=== PATIENT | female | born 1940 | race Caucasian/White ===

== ENCOUNTER 2021-07-15 23:55 | Inpatient (IN) | payer MEDICARE ==
[~2021-07-15] VITALS: Ht 162.6 cm; Wt 45.3 kg
[2021-07-15 23:35] VITALS: BP 173/74
[2021-07-16] MEDS ORDERED: ONDANSETRON PF 4 MG/2 ML VIAL. IVP PRN (01:15)
[2021-07-16] MEDS: IV NORMAL SALINE 1000ML BAG 1,000 ML IV SCH ×3 (01:36→23:50)
[2021-07-16] MEDS: hydrALAZINE 20 MG/ML VIAL. IVP PRN (01:36)
[2021-07-16] MEDS ORDERED: LISI10TA16 PO (02:40)
[2021-07-16] MEDS ORDERED: MULT-735 PO (02:40)
[2021-07-16] MEDS ORDERED: LORA-434 PO (02:40)
[2021-07-16] MEDS ORDERED: SIMV40TA18 PO (02:40)
[2021-07-16] MEDS ORDERED: ASPI-630 PO (02:40)
[2021-07-16] MEDS ORDERED: CALC500T54 PO (02:40)
[2021-07-16] MEDS ORDERED: METO-239 PO (02:40)
[2021-07-16] MEDS ORDERED: METH4TAB7 PO (03:13)
[2021-07-16 03:47] VITALS: BP 151/55
[2021-07-16] MEDS: PIPERACILLIN/TAZOBACTAM 3.375 GM in IV NORMAL SALINE 50ML 50 ML IV SCH ×4 (05:39→23:50)
[2021-07-16 06:53] LABS: PROTHROMBIN TIME PATIENT 12.8 SEC (11.7-14.0)
[2021-07-16 07:00] VITALS: BP 168/60
--- NOTE | 2021-07-16 09:14 | PN ---
DATE: 07/16/2021 SUBJECTIVE: The patient is resting, slightly propped up in bed, in no apparent distress. She is awake, alert. On questioning her, she continued to complain of pain mostly in the left lower quadrant. Denied any chills, rigors or fever. Denied any nausea, vomiting. She does pass some gas. Her last bowel movement was more than 24 hours ago. PHYSICAL EXAMINATION: GENERAL: When I examined her, she looked well and was clearly in no apparent respiratory distress. She was cachectic, but there was no pallor, jaundice, cyanosis or thyromegaly. No jugular venous distention. No limb edema. VITAL SIGNS: Her heart rate was 92, blood pressure is 168/60, temperature was 98, respiratory rate was 16 and oxygen saturation was 96% on 2 liters of oxygen. HEAD, EYES, EARS, NOSE, AND THROAT: Normocephalic, atraumatic. NECK: Supple. HEART: Normal first and second heart sounds, no gallop or murmur. CHEST: Clear to auscultation, no crepitation or rhonchi. ABDOMEN: Slightly distended with tenderness mostly in the left lower quadrant and suprapubic area. No guarding or rigidity. No organomegaly. All hernial orifice intact. Bowel sounds normal. NEUROLOGIC: She was grossly intact. Her intake and output are incompletely recorded. LABORATORY DATA: As of this morning showed that her prothrombin time was 12.8, INR of 1, APTT was 25. Her lactic acid was 2.4. Her CBC and CMP are still pending at the time of this dictation. ASSESSMENT: 1. Acute diverticulitis with perforation. 2. Hypertension. 3. Hyperlipidemia. 4. Chronic obstructive pulmonary disease. 5. 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 PLAN: My plan is to obviously continue n.p.o. status. Continue with IV fluid. We will continue to monitor blood sugar and if it is persistently high, we might have to start her on low dose sliding scale. ALLAN DR: Zach TID: [id number]
[2021-07-16 09:24] LABS: HEMATOCRIT 38.1 % (36.0-47.0); RED BLOOD COUNT 3.86 x10^6/uL (3.50-5.40); WHITE BLOOD COUNT 11.8 x10^3/uL (4.0-11.0)
[2021-07-16 09:37] LABS: ALBUMIN 3.1 g/dL (3.4-5.0); ALBUMIN/GLOBULIN RATIO 0.9 (1.0-1.7); CALCIUM 8.4 mg/dL (8.5-10.1); CREATININE 0.9 mg/dL (0.6-1.0); GFR 60.4; POTASSIUM 4.4 mmol/L (3.5-5.1); TOTAL BILIRUBIN 0.2 mg/dL (0.2-1.0); TOTAL PROTEIN 6.4 g/dL (6.4-8.2)
--- NOTE | 2021-07-16 09:52 | NUR ---
SW following. Discussed with RN, pt from home with family, 2L (uses oxygen at home), NPO. Pt is a new admit, awaiting plan of care. RN advised no SW needs at this time. SW will continue to follow.
[2021-07-16 11:00] VITALS: BP 162/56
--- NOTE | 2021-07-16 12:19 | HP ---
DATE OF SERVICE: 07/16/2021 ADMIT DATE: 07/15/2021 HISTORY OF PRESENT ILLNESS: The patient is a 81-year-old female patient who presented to the Emergency Room of [facility] with a complaint of abdominal pain since she woke up the day of admission and she reported intermittent pain to different parts of her abdomen that comes and goes. She reports almost no pain when lying flat; however, notes increased pain when she sits up or when she is up walking. She reported that she does take MiraLax and she has diarrhea all the time. She stated that she is concerned that she might have another small-bowel obstruction. She had similar symptoms on her small-bowel obstruction earlier for which she was seen at [facility] and apparently resolved conservatively. The patient currently reports 0/10 pain at this time. The time she arrived, she reports that she had some twinges of pain while in the waiting room. She states that last week, she was seen for a COPD exacerbation and she quit smoking about 14 years ago. She does complain of shortness of breath that is no more short than her usual. Denied any chest pain, cough, phlegm, nausea or constipation. Her last bowel movement was about 24 hours ago. She was extensively investigated in the Emergency Room of [facility] and has had lab work and imaging studies. Her CBC showed that she has leukocytosis with a white cell count 14,400 and manual differential showed 87% polymorphs. Her D-dimer was high at 4.84 and her chemistry showed that she is somewhat dehydrated and has also hyperglycemia, although this is obviously not fasting glucose. Urinalysis essentially unremarkable. Her coronavirus by PCR was negative and her imaging studies included chest x-ray, which showed no acute radiographic abnormality of the chest. She has constellation of findings, typically seen in emphysema. She did have a CT scan of the chest, abdomen and pelvis with contrast and it does show that the patient has no pulmonary embolism or aortic dissection. She has extremely severe calcified and noncalcified atheromatous plaque burden throughout the aorta, aortic branch vessels and coronary arteries. Luminal narrowing of the abdominal aorta up to approximately 50%, severe stenosis of the celiac, right renal artery and inferior mesenteric artery. She also has long segment severe stenosis of both common iliac arteries, and multifocal less pronounced stenosis at additional location as described in the body of the report. She has scattered free gas throughout the abdomen and pelvis, this appears to be originating from the sigmoid colonic perforation, which may be secondary to perforated diverticulitis, but an ischemic etiology not able to be excluded. She has no portal or gastroepiploic venous gas to help confirm. The later portions of the sigmoid colon wall are difficult to delineate and there may be a poorly marginated gas fluid collection at the left hemipelvis such as in the region of image 94, series 8, no finding to indicate that the perforation arising from the stomach or small bowel. She has scattered degenerative changes, unchanged sclerosis of the sacroiliac joint and therefore, the patient was transferred to [facility], was kept n.p.o., started on IV fluid, IV antibiotic as well as pain medication, antiemetic. Continue with her oxygen. Consulted the surgical team. PAST MEDICAL HISTORY: Significant for hypertension, hyperlipidemia, chronic obstructive pulmonary disease that is oxygen dependent. She is a vasculopath and she has bilateral carotid artery stenosis and apparently finding consistent with inferior mesenteric artery stenosis, right renal artery stenosis and celiac artery stenosis and bilateral common iliac artery stenosis. PAST SURGICAL HISTORY: Significant for bilateral cataract extraction, what seemed to be a retinal detachment. Has no other surgical procedures. ALLERGIES: She has no known drug allergies. MEDICATIONS: She is currently on simvastatin 40 mg at bedtime, metoprolol succinate 50 mg once a day, lisinopril 10 mg once a day, aspirin 81 mg once a day, lorazepam 1 mg at bedtime, calcium carbonate 600 mg daily, methylprednisolone 4 mg daily. She is on multivitamin 1 tablet once a day. FAMILY HISTORY: Noncontributory. SOCIAL HISTORY: She is , lives with her daughter. She quit smoking about 14 years ago. She does not drink alcohol or use recreational drugs. She worked for [employer] in [employer] for 10 years and worked as a rn field case manager for 10 years. She is currently retired. REVIEW OF SYSTEMS: The patient denied any blurring of vision, cataracts, glaucoma or macular degeneration. Denied any earache, tinnitus or sensorineural deafness. Denied any nosebleed, stuffy nose or postnasal drip. Denied any sore throat, sore tongue, toothache, hoarseness of voice or difficulty swallowing. Denied any nausea, vomiting, diarrhea or constipation. Denied any hematemesis, melena or hematochezia. Denied any dysuria, frequency or hematuria. Denied any chest pain or shortness of breath more than usual. She denied any cough, phlegm or hemoptysis. PHYSICAL EXAMINATION: GENERAL: On arrival to the Emergency Room, she looked well and was clearly in no apparent respiratory distress. There was no pallor, jaundice, cyanosis or thyromegaly. No jugular venous distention. No lower limb edema, although, she is extremely cachectic with a body mass index of only 17 kilograms/square meter. VITAL SIGNS: Her heart rate on arrival to the Emergency Room was 81, blood pressure was 154/58, her temperature was 98, respiratory rate 20, and oxygen saturation was 92% on room air. HEAD, EYES, EARS, NOSE, AND THROAT: Normocephalic, atraumatic. NECK: Supple. HEART: Normal first and second heart sounds, no gallop or murmur. CHEST: Shows central trachea, equally reduced expansion, reduced air entry, vesicular breath sounds. I could not really appreciate any crepitation or rhonchi. ABDOMEN: Slightly distended with tenderness mostly in the left lower quadrant and suprapubic area and there is no guarding or rigidity. No organomegaly. All hernial orifice intact. Bowel sounds normal. NEUROLOGIC: She is awake, alert, responding appropriately. All cranial nerves intact. She moves extremities without difficulty. She normally ambulates without assistance or assistive devices. LABORATORY DATA: Showed a white cell count of 14,400, hemoglobin 13, hematocrit 39, MCV 98 and platelet count 283,000. Her chemistry showed a serum sodium 135, potassium 4.7, chloride 99, bicarbonate 27, anion gap of 9, BUN 32, creatinine 1, estimated GFR was 53 mL per minute. Her glucose 169, calcium was 8.6. Total bilirubin, AST, ALT, alkaline phosphatase were normal. Total protein was 6.6, albumin 3.3 and serum lipase was only 42. Her D-dimer was high at 4.84. Urinalysis essentially unremarkable and her coronavirus by PCR was negative. ASSESSMENT AND PLAN: Given the finding CT scan of the chest, abdomen and pelvis, the patient was transferred to [facility] with a diagnosis of bowel perforation, questionable acute diverticulitis with perforation. Blood sugar was elevated; however, this is not a fasting profile. She had hypertension, elevated D-dimer with negative CT angio for pulmonary emboli. She is severe vasculopath with multiple arterial stenosis including celiac, right renal artery, inferior mesenteric artery, and bilateral carotid artery stenosis. She was admitted to [facility], kept n.p.o., started on IV fluid, IV antibiotic in the form of Zosyn 3.375 grams IV every 6 hours, pain medication, antiemetic and kept her n.p.o., consulted the surgical team for definitive surgical treatment. KATELYN/LEANA/MICHAEL DR: Zach TID: [id number]
--- NOTE | 2021-07-16 14:57 | PDOC2 ---
CONSULT Date of Consult Date of Consult DATE: 07/16/21 TIME: 14:52 History of Present Illness Reason for Visit: The patient is a 81 year old female who was transferred from [facility] last evening for further treatment. She reports noticing severe LLQ abdominal pain starting a couple of days ago. She denies fevers or chills. She does admit to having issues with constipation for many months requiring her to take miralax daily. She had a prior episode of severe abdominal pain 6 months ago and reported to [facility]. She states she was treated for a "bowel blockage". Her evaluation at [facility] is consistent with diverticulitis with microperforation. Past Medical History Past Medical History COPD, peripheral vascular disease, carotid stenosis Past Surgical History Past Surgical History No prior abdominal surgeries Social History Quit (long history of smoking prior to quitting) Current Medications Current Medications Current Medications Sodium Chloride 1,000 ml @ 100 mls/hr Q10H IV Last administered on 07/16/21at 12:25; Start 07/16/21 at 01:15 Piperacillin Sod/ Tazobactam Sod 3.375 gm/Sodium Chloride 50 ml @ 100 mls/hr Q6HRS IV Last administered on 07/16/21at 12:25; Start 07/16/21 at 06:00 Fentanyl Citrate (Fentanyl 2ml Vial) 50 mcg PRN Q3HRS PRN IVP SEVERE PAIN 7-10; Start 07/16/21 at 01:15 Ondansetron HCl (Zofran) 4 mg PRN Q4HRS PRN IVP NAUSEA/VOMITING 1ST CHOICE; Start 07/16/21 at 01:15 Hydralazine HCl (Apresoline Inj) 10 mg PRN Q4HRS PRN IVP ELEVATED BP, SEE COMMENTS Last administered on 07/16/21at 01:36; Start 07/16/21 at 01:15 Lorazepam (Ativan Inj) 0.5 mg PRN Q4HRS PRN IVP ANXIETY / AGITATION Last administered on 07/16/21at 01:36; Start 07/16/21 at 01:15 Active Scripts Active Reported Methylprednisolone 4 Mg Tablet 1 Pkg PO UD Simvastatin 40 Mg Tablet 40 Mg PO HS Calcium (Calcium Carbonate) 500 Mg Tab.chew 600 Mg PO DAILY One-Daily Multi-Vitamin (Multivitamin) 1 Each Tablet 1 Tab PO DAILY 30 Days Aspirin 81 Mg Tab.chew 81 Mg PO DAILY Metoprolol Succinate ( Xl ) (Metoprolol Succinate) 25 Mg Tab.er.24h 50 Mg PO DAILY Ativan (Lorazepam) 1 Mg Tablet 1 Mg PO HS Lisinopril 10 Mg Tablet 10 Mg PO DAILY Allergies Allergies: Coded Allergies: No Known Medication Allergies (Verified Allergy, Unknown, 07/16/21) ROS General: No: Chills, Night Sweats, Fatigue, Malaise, Appetite, Other PSYCHOLOGICAL ROS: No: Anxiety, Behavioral Disorder, Concentration difficultie, Decreased libido, Depression, Disorientation, Hallucinations, Hostility, Irritablity, Memory difficulties, Mood Swings, Obsessive thoughts, Physical abuse, Sexual abuse, Sleep disturbances, Suicidal ideation, Other Eyes: No Blurry vision, No Decreased vision, No Double vision, No Dry eyes, No Excessive tearing, No Eye Pain, No Itchy Eyes, No Loss of vision, No Photophobia, No Scotomata, No Uses contacts, No Uses glasses, No Other ALLERGY AND IMMUNOLOGY: No: Hives, Insect Bite Sensitivity, Itchy/Watery Eyes, Nasal Congestion, Post Nasal Drip, Seasonal Allergies, Other ENDOCRINE: No: Breast Changes, Galactorrhea, Hair Pattern Changes, Hot Flashes, Malaise/lethargy, Mood Swings, Palpitations, Polydipsia/polyuria, Skin Changes, Temperature Intolerance, Unexpected Weight Changes, Other Cardiovascular: No Chest Pain, No Palpitations, No Orthopnea, No Paroxysmal Noc . Dyspnea, No Edema, No Lt Headedness, No Other Gastrointestinal: Yes Abdominal Pain Genitourinary: No Dysuria, No Frequency, No Incontinence, No Hematuria, No Retention, No Discharge, No Urgency, No Pain, No Flank Pain, No Other, No , No , No , No , No , No , No Musculoskeletal: No Gait Disturbance, No Joint Pain, No Joint Stiffness, No Joint Swelling, No Muscle Pain, No Muscular Weakness, No Pain In:, No Swelling In:, No Other Neurological: No Behavorial Changes, No Bowel/Bladder ControlChng, No Confusion, No Dizziness, No Gait Disturbance, No Headaches, No Impaired Coord/balance, No Memory Loss, No Numbness/Tingling, No Seizures, No Speech Problems, No Tremors, No Visual Changes, No Weakness, No Other Skin: No Dry Skin, No Eczema, No Hair Changes, No Lumps, No Mole Changes, No Mottling, No Nail Changes, No Pruritus, No Rash, No Skin Lesion Changes, No Other, No Acne Physical Exam General: Alert, Oriented X3, Cooperative HEENT: Atraumatic Lungs: Other (few rales) Heart: Regular rate Abdomen: Soft (tender with palpation LLQ, no guarding) Extremities: No clubbing, No cyanosis Skin: No rashes Neuro: Normal speech Psych/Mental Status: Mental status NL Vitals VITALS Vital Signs Date Time Temp Pulse Resp B/P (MAP) Pulse Ox O2 Delivery O2 Flow Rate FiO2 07/16/21 11:00 98.0 87 16 162/56 (91) 95 Nasal Cannula 2.0 98.0 Labs Labs Laboratory Tests Test 07/16/21 03:40 07/16/21 08:40 White Blood Count 11.8 x10^3/uL (4.0-11.0) Red Blood Count 3.86 x10^6/uL (3.50-5.40) Hemoglobin 13.0 g/dL (12.0-15.5) Hematocrit 38.1 % (36.0-47.0) Mean Corpuscular Volume 99 fL (79-100) Mean Corpuscular Hemoglobin 34 pg (25-35) Mean Corpuscular Hemoglobin Concent 34 g/dL (31-37) Red Cell Distribution Width 14.0 % (11.5-14.5) Platelet Count 273 x10^3/uL (140-400) Prothrombin Time 12.8 SEC (11.7-14.0) Prothromb Time International Ratio 1.0 (0.8-1.1) Activated Partial Thromboplast Time 25 SEC (24-38) Sodium Level 139 mmol/L (136-145) Potassium Level 4.4 mmol/L (3.5-5.1) Chloride Level 100 mmol/L (98-107) Carbon Dioxide Level 25 mmol/L (21-32) Anion Gap 14 (6-14) Blood Urea Nitrogen 24 mg/dL (7-20) Creatinine 0.9 mg/dL (0.6-1.0) Estimated GFR (Cockcroft-Gault) 60.4 BUN/Creatinine Ratio 27 (6-20) Glucose Level 133 mg/dL (70-99) Lactic Acid Level 2.4 mmol/L (0.4-2.0) 1.2 mmol/L (0.4-2.0) Calcium Level 8.4 mg/dL (8.5-10.1) Total Bilirubin 0.2 mg/dL (0.2-1.0) Aspartate Amino Transf (AST/SGOT) 15 U/L (15-37) Alanine Aminotransferase (ALT/SGPT) 29 U/L (14-59) Alkaline Phosphatase 61 U/L (46-116) Total Protein 6.4 g/dL (6.4-8.2) Albumin 3.1 g/dL (3.4-5.0) Albumin/Globulin Ratio 0.9 (1.0-1.7) Laboratory Tests Test 07/16/21 03:40 07/16/21 08:40 White Blood Count 11.8 x10^3/uL (4.0-11.0) Red Blood Count 3.86 x10^6/uL (3.50-5.40) Hemoglobin 13.0 g/dL (12.0-15.5) Hematocrit 38.1 % (36.0-47.0) Mean Corpuscular Volume 99 fL (79-100) Mean Corpuscular Hemoglobin 34 pg (25-35) Mean Corpuscular Hemoglobin Concent 34 g/dL (31-37) Red Cell Distribution Width 14.0 % (11.5-14.5) Platelet Count 273 x10^3/uL (140-400) Prothrombin Time 12.8 SEC (11.7-14.0) Prothromb Time International Ratio 1.0 (0.8-1.1) Activated Partial Thromboplast Time 25 SEC (24-38) Sodium Level 139 mmol/L (136-145) Potassium Level 4.4 mmol/L (3.5-5.1) Chloride Level 100 mmol/L (98-107) Carbon Dioxide Level 25 mmol/L (21-32) Anion Gap 14 (6-14) Blood Urea Nitrogen 24 mg/dL (7-20) Creatinine 0.9 mg/dL (0.6-1.0) Estimated GFR (Cockcroft-Gault) 60.4 BUN/Creatinine Ratio 27 (6-20) Glucose Level 133 mg/dL (70-99) Lactic Acid Level 2.4 mmol/L (0.4-2.0) 1.2 mmol/L (0.4-2.0) Calcium Level 8.4 mg/dL (8.5-10.1) Total Bilirubin 0.2 mg/dL (0.2-1.0) Aspartate Amino Transf (AST/SGOT) 15 U/L (15-37) Alanine Aminotransferase (ALT/SGPT) 29 U/L (14-59) Alkaline Phosphatase 61 U/L (46-116) Total Protein 6.4 g/dL (6.4-8.2) Albumin 3.1 g/dL (3.4-5.0) Albumin/Globulin Ratio 0.9 (1.0-1.7) Assessment/Plan Assessment/Plan 81 year old female, suspect diverticulitis with microperforation. Recommend bowel rest, IV abx, hydration, pain control, serial exam/labs. Hope to avoid surgery as patient is a poor operative candidate. ISIS BARRERA MD Jul 16, 2021 14:57
[2021-07-16 15:00] VITALS: BP 178/65
[2021-07-16 19:33] VITALS: BP 142/70
[2021-07-16 22:45] VITALS: BP 173/85
[2021-07-17 02:47] VITALS: BP 123/69
[2021-07-17] MEDS: PIPERACILLIN/TAZOBACTAM 3.375 GM in IV NORMAL SALINE 50ML 50 ML IV SCH ×3 (05:17→18:00)
[2021-07-17 07:00] VITALS: BP 147/67
[2021-07-17 07:28] LABS: BASO % 0 % (0-3); EOS % 0 % (0-3); HEMATOCRIT 38.4 % (36.0-47.0); HEMOGLOBIN 12.8 g/dL (12.0-15.5); LYMPH # 0.7 x10^3/uL (1.0-4.8); LYMPH % 6 % (24-48); MEAN CORPUSCULAR HEMOGLOBIN 33 pg (25-35); MEAN CORPUSCULAR HGB CONC 33 g/dL (31-37); MEAN CORPUSCULAR VOLUME 98 fL (79-100); MONO # 0.9 x10^3/uL (0.0-1.1); MONO % 8 % (0-9); NEUT # 9.2 x10^3/uL (1.8-7.7); NEUT % 86 % (31-73); PLATELET COUNT 262 x10^3/uL (140-400); RED BLOOD COUNT 3.94 x10^6/uL (3.50-5.40); RED CELL DISTRIBUTION WIDTH 13.8 % (11.5-14.5); WHITE BLOOD COUNT 10.7 x10^3/uL (4.0-11.0)
[2021-07-17 08:03] LABS: ALBUMIN 2.6 g/dL (3.4-5.0); ALBUMIN/GLOBULIN RATIO 0.8 (1.0-1.7); CALCIUM 7.4 mg/dL (8.5-10.1); CREATININE 0.8 mg/dL (0.6-1.0); GFR 69.2; POTASSIUM 3.5 mmol/L (3.5-5.1); TOTAL BILIRUBIN 0.3 mg/dL (0.2-1.0)
[2021-07-17] MEDS: IV NORMAL SALINE 1000ML BAG 1,000 ML IV SCH ×2 (10:32→17:15)
[2021-07-17 11:02] VITALS: BP 150/60
[2021-07-17] MEDS: fentaNYL PF VIAL 100 MCG/2 ML VIAL IVP PRN ×3 (13:03→21:14)
--- NOTE | 2021-07-17 14:11 | PDOC ---
PROGRESS NOTES Date of Service DATE: 07/17/21 TIME: 14:09 Subjective Subjective not feeling well, still with pain in LLQ Objective Objective Vital Signs Date Time Temp Pulse Resp B/P (MAP) Pulse Ox O2 Delivery O2 Flow Rate FiO2 07/17/21 11:02 98.2 88 20 150/60 (90) 97 Nasal Cannula 2.0 98.2 Intake and Output 07/17/21 07:00 Output Total 1400 ml Balance -1400 ml Output Urine Total 1400 ml Physical Exam Abdomen: Soft (tender LLQ with palpation) Heart: Regular rate General: Alert, Oriented X3 Lungs: Clear to auscultation Neuro: Normal speech Assessment Assessment Diverticulitis Plan Plan of Care Continued pain, afeb, WBC improved; continue with close monitoring, repeat CBC in am, serial exams etc. May need repeat CT in next 2-3 days for FU Comment Review of Relevant I have reviewed the following items autmun (where applicable) has been applied. Labs Laboratory Tests Test 07/16/21 03:40 07/16/21 08:40 07/17/21 06:15 White Blood Count 11.8 x10^3/uL (4.0-11.0) 10.7 x10^3/uL (4.0-11.0) Red Blood Count 3.86 x10^6/uL (3.50-5.40) 3.94 x10^6/uL (3.50-5.40) Hemoglobin 13.0 g/dL (12.0-15.5) 12.8 g/dL (12.0-15.5) Hematocrit 38.1 % (36.0-47.0) 38.4 % (36.0-47.0) Mean Corpuscular Volume 99 fL (79-100) 98 fL (79-100) Mean Corpuscular Hemoglobin 34 pg (25-35) 33 pg (25-35) Mean Corpuscular Hemoglobin Concent 34 g/dL (31-37) 33 g/dL (31-37) Red Cell Distribution Width 14.0 % (11.5-14.5) 13.8 % (11.5-14.5) Platelet Count 273 x10^3/uL (140-400) 262 x10^3/uL (140-400) Prothrombin Time 12.8 SEC (11.7-14.0) Prothromb Time International Ratio 1.0 (0.8-1.1) Activated Partial Thromboplast Time 25 SEC (24-38) Sodium Level 139 mmol/L (136-145) 140 mmol/L (136-145) Potassium Level 4.4 mmol/L (3.5-5.1) 3.5 mmol/L (3.5-5.1) Chloride Level 100 mmol/L (98-107) 104 mmol/L (98-107) Carbon Dioxide Level 25 mmol/L (21-32) 24 mmol/L (21-32) Anion Gap 14 (6-14) 12 (6-14) Blood Urea Nitrogen 24 mg/dL (7-20) 17 mg/dL (7-20) Creatinine 0.9 mg/dL (0.6-1.0) 0.8 mg/dL (0.6-1.0) Estimated GFR (Cockcroft-Gault) 60.4 69.2 BUN/Creatinine Ratio 27 (6-20) 21 (6-20) Glucose Level 133 mg/dL (70-99) 85 mg/dL (70-99) Lactic Acid Level 2.4 mmol/L (0.4-2.0) 1.2 mmol/L (0.4-2.0) Calcium Level 8.4 mg/dL (8.5-10.1) 7.4 mg/dL (8.5-10.1) Total Bilirubin 0.2 mg/dL (0.2-1.0) 0.3 mg/dL (0.2-1.0) Aspartate Amino Transf (AST/SGOT) 15 U/L (15-37) 17 U/L (15-37) Alanine Aminotransferase (ALT/SGPT) 29 U/L (14-59) 24 U/L (14-59) Alkaline Phosphatase 61 U/L (46-116) 54 U/L (46-116) Total Protein 6.4 g/dL (6.4-8.2) 6.0 g/dL (6.4-8.2) Albumin 3.1 g/dL (3.4-5.0) 2.6 g/dL (3.4-5.0) Albumin/Globulin Ratio 0.9 (1.0-1.7) 0.8 (1.0-1.7) Neutrophils (%) (Auto) 86 % (31-73) Lymphocytes (%) (Auto) 6 % (24-48) Monocytes (%) (Auto) 8 % (0-9) Eosinophils (%) (Auto) 0 % (0-3) Basophils (%) (Auto) 0 % (0-3) Neutrophils # (Auto) 9.2 x10^3/uL (1.8-7.7) Lymphocytes # (Auto) 0.7 x10^3/uL (1.0-4.8) Monocytes # (Auto) 0.9 x10^3/uL (0.0-1.1) Eosinophils # (Auto) 0.0 x10^3/uL (0.0-0.7) Basophils # (Auto) 0.0 x10^3/uL (0.0-0.2) Laboratory Tests Test 07/17/21 06:15 White Blood Count 10.7 x10^3/uL (4.0-11.0) Red Blood Count 3.94 x10^6/uL (3.50-5.40) Hemoglobin 12.8 g/dL (12.0-15.5) Hematocrit 38.4 % (36.0-47.0) Mean Corpuscular Volume 98 fL (79-100) Mean Corpuscular Hemoglobin 33 pg (25-35) Mean Corpuscular Hemoglobin Concent 33 g/dL (31-37) Red Cell Distribution Width 13.8 % (11.5-14.5) Platelet Count 262 x10^3/uL (140-400) Neutrophils (%) (Auto) 86 % (31-73) Lymphocytes (%) (Auto) 6 % (24-48) Monocytes (%) (Auto) 8 % (0-9) Eosinophils (%) (Auto) 0 % (0-3) Basophils (%) (Auto) 0 % (0-3) Neutrophils # (Auto) 9.2 x10^3/uL (1.8-7.7) Lymphocytes # (Auto) 0.7 x10^3/uL (1.0-4.8) Monocytes # (Auto) 0.9 x10^3/uL (0.0-1.1) Eosinophils # (Auto) 0.0 x10^3/uL (0.0-0.7) Basophils # (Auto) 0.0 x10^3/uL (0.0-0.2) Sodium Level 140 mmol/L (136-145) Potassium Level 3.5 mmol/L (3.5-5.1) Chloride Level 104 mmol/L (98-107) Carbon Dioxide Level 24 mmol/L (21-32) Anion Gap 12 (6-14) Blood Urea Nitrogen 17 mg/dL (7-20) Creatinine 0.8 mg/dL (0.6-1.0) Estimated GFR (Cockcroft-Gault) 69.2 BUN/Creatinine Ratio 21 (6-20) Glucose Level 85 mg/dL (70-99) Calcium Level 7.4 mg/dL (8.5-10.1) Total Bilirubin 0.3 mg/dL (0.2-1.0) Aspartate Amino Transf (AST/SGOT) 17 U/L (15-37) Alanine Aminotransferase (ALT/SGPT) 24 U/L (14-59) Alkaline Phosphatase 54 U/L (46-116) Total Protein 6.0 g/dL (6.4-8.2) Albumin 2.6 g/dL (3.4-5.0) Albumin/Globulin Ratio 0.8 (1.0-1.7) Microbiology 07/16/21 Blood Culture - Preliminary, Resulted NO GROWTH AFTER 1 DAY Medications Current Medications Sodium Chloride 1,000 ml @ 100 mls/hr Q10H IV Last administered on 07/17/21at 10:32; Start 07/16/21 at 01:15 Piperacillin Sod/ Tazobactam Sod 3.375 gm/Sodium Chloride 50 ml @ 100 mls/hr Q6HRS IV Last administered on 07/17/21at 12:59; Start 07/16/21 at 06:00 Fentanyl Citrate (Fentanyl 2ml Vial) 50 mcg PRN Q3HRS PRN IVP SEVERE PAIN 7-10 Last administered on 07/17/21at 13:03; Start 07/16/21 at 01:15 Ondansetron HCl (Zofran) 4 mg PRN Q4HRS PRN IVP NAUSEA/VOMITING 1ST CHOICE; Start 07/16/21 at 01:15 Hydralazine HCl (Apresoline Inj) 10 mg PRN Q4HRS PRN IVP ELEVATED BP, SEE COMMENTS Last administered on 07/16/21at 01:36; Start 07/16/21 at 01:15 Lorazepam (Ativan Inj) 0.5 mg PRN Q4HRS PRN IVP ANXIETY / AGITATION Last administered on 07/16/21at 01:36; Start 07/16/21 at 01:15 Active Scripts Active Reported Methylprednisolone 4 Mg Tablet 1 Pkg PO UD Simvastatin 40 Mg Tablet 40 Mg PO HS Calcium (Calcium Carbonate) 500 Mg Tab.chew 600 Mg PO DAILY One-Daily Multi-Vitamin (Multivitamin) 1 Each Tablet 1 Tab PO DAILY 30 Days Aspirin 81 Mg Tab.chew 81 Mg PO DAILY Metoprolol Succinate ( Xl ) (Metoprolol Succinate) 25 Mg Tab.er.24h 50 Mg PO DA EVON Ativan (Lorazepam) 1 Mg Tablet 1 Mg PO HS Lisinopril 10 Mg Tablet 10 Mg PO DAILY Vitals/I & O Vital Sign - Last 24 Hours 07/16/21 07/16/21 07/16/21 07/16/21 15:00 19:33 20:00 22:45 Temp 98.2 98.3 97.9 98.2 98.3 97.9 Pulse 102 70 154 Resp 17 17 B/P (MAP) 178/65 (102) 142/70 (94) 173/85 (114) Pulse Ox 95 94 96 O2 Delivery Nasal Cannula Nasal Cannula Nasal Cannula Nasal Cannula O2 Flow Rate 2.0 2.0 2.0 2.0 07/17/21 07/17/21 07/17/21 07/17/21 02:47 07:00 08:00 11:02 Temp 98.0 97.8 98.2 98.0 97.8 98.2 Pulse 102 97 88 Resp 17 20 20 B/P (MAP) 123/69 (87) 147/67 (93) 150/60 (90) Pulse Ox 97 97 97 O2 Delivery Nasal Cannula Nasal Cannula Nasal Cannula Nasal Cannula O2 Flow Rate 2.0 2.0 2.0 2.0 Intake and Output 07/16/21 07/16/21 07/17/21 15:00 23:00 07:00 Output Total 1400 ml Balance -1400 ml Justifications for Admission Other Justification ISIS BARRERA MD Jul 17, 2021 14:11
[2021-07-17 15:00] VITALS: BP 165/69
[2021-07-17 19:00] VITALS: BP 159/72
--- NOTE | 2021-07-17 21:38 | PN ---
DATE: 07/17/2021 SUBJECTIVE: The patient is resting, slightly propped up in bed, in no apparent distress. She is stating that she is hungry and would like to eat. She has some pain in her left lower quadrant, but denied any nausea, vomiting. Denied any chills, rigors or fever. PHYSICAL EXAMINATION: GENERAL: When I examined her, she looked well and was clearly in no apparent respiratory distress. No pallor, jaundice, cyanosis or thyromegaly. No jugular venous distention. No limb edema. VITAL SIGNS: Her heart rate was 88, blood pressure 150/60, temperature was 98.2, respiratory rate was 20 and oxygen saturation was 97% on 2 liters of oxygen. HEAD, EYES, EARS, NOSE, AND THROAT: Normocephalic, atraumatic. NECK: Supple. HEART: Normal first and second heart sounds, no gallop or murmur. CHEST: Clear to auscultation. No crepitation or rhonchi. ABDOMEN: Scaphoid, soft, mild tenderness in the right lower quadrant. There is no guarding or rigidity. No organomegaly. All hernial orifice intact. Bowel sounds normal. NEUROLOGIC: She is grossly intact. Her intake and output are incompletely recorded. LABORATORY DATA: Her lab work this morning showed a white cell count 15,700, hemoglobin 13, hematocrit 38, MCV 98 and platelet count 262,000 with normal manual differential. Her chemistry showed a serum sodium 140, potassium 3.5, chloride 104, bicarbonate 24, anion gap of 12, BUN 17, creatinine 0.8. Estimated GFR was 69 mL per minute. Her glucose was 85, calcium was 7.4. Total bilirubin, AST, ALT, alkaline phosphatase were normal. Total protein 6, albumin 2.6. ASSESSMENT: 1. Probably acute diverticulitis with microperforation. The patient has a multitude of other medical problems including hypertension. 2. Hyperlipidemia. 3. Chronic obstructive pulmonary disease that is oxygen dependent. 4. 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 PLAN: To continue with n.p.o. status. Continue with IV fluid. Continue with piperacillin/tazobactam. Continue with fentanyl for pain, ondansetron for nausea and vomiting and hydralazine for high blood pressure. GERARDO DR: Zach TID: [id number]
[2021-07-17 22:52] VITALS: BP 158/69
[2021-07-18] VITALS (7 sets, daily range): BP systolic 92–159; BP diastolic 51–85
[2021-07-18] MEDS: fentaNYL PF VIAL 100 MCG/2 ML VIAL IVP PRN ×3 (00:55→11:11)
[2021-07-18] MEDS: IV NORMAL SALINE 1000ML BAG 1,000 ML IV SCH ×3 (03:15→18:44)
[2021-07-18] MEDS: PIPERACILLIN/TAZOBACTAM 3.375 GM in IV NORMAL SALINE 50ML 50 ML IV SCH ×4 (05:37→17:40)
[2021-07-18] MEDS: LISINOPRIL 10 MG TABLET PO SCH (07:28)
[2021-07-18 08:28] LABS: BASO % 0 % (0-3); EOS % 0 % (0-3); HEMATOCRIT 41.4 % (36.0-47.0); HEMOGLOBIN 13.7 g/dL (12.0-15.5); LYMPH # 0.9 x10^3/uL (1.0-4.8); LYMPH % 7 % (24-48); MEAN CORPUSCULAR HEMOGLOBIN 33 pg (25-35); MEAN CORPUSCULAR HGB CONC 33 g/dL (31-37); MEAN CORPUSCULAR VOLUME 99 fL (79-100); MONO % 7 % (0-9); NEUT # 11.2 x10^3/uL (1.8-7.7); NEUT % 85 % (31-73); PLATELET COUNT 291 x10^3/uL (140-400); WHITE BLOOD COUNT 13.1 x10^3/uL (4.0-11.0)
[2021-07-18 08:54] LABS: ALBUMIN 2.4 g/dL (3.4-5.0); ALBUMIN/GLOBULIN RATIO 0.7 (1.0-1.7); CALCIUM 7.4 mg/dL (8.5-10.1); CREATININE 0.7 mg/dL (0.6-1.0); GFR 80.7; POTASSIUM 3.7 mmol/L (3.5-5.1); TOTAL BILIRUBIN 0.6 mg/dL (0.2-1.0)
[2021-07-18] MEDS ORDERED: METOPROLOL SUCC 24HR ER 25 MG TAB.ER.24H. PO SCH (09:00)
[2021-07-18] MEDS: MULTIVITAMIN with MINERAL TABLET. PO SCH (09:00)
[2021-07-18] MEDS: ASPIRIN CHEWABLE 81 MG TABLET. PO SCH (09:00)
[2021-07-18] MEDS: CALCIUM CARBONATE 500 MG TABLET PO SCH (09:00)
--- NOTE | 2021-07-18 09:44 | PDOC ---
SURGICAL PROGRESS NOTE DATE: 07/18/21 TIME: 09:43 Subjective feels so so less abdominal pain no nausea Vital Signs Vital Signs Date Time Temp Pulse Resp B/P (MAP) Pulse Ox O2 Delivery O2 Flow Rate FiO2 07/18/21 08:17 97.4 183 22 123/62 (82) 97 Nasal Cannula 2.0 97.4 I&O Intake and Output 07/18/21 07:00 Output Total 100 ml Balance -100 ml Output Urine Total 100 ml # Voids 1 # Bowel Movements 1 General: Alert, Cooperative Abdomen: Soft, Other (mild ttp LLQ, no guarding ) Labs Laboratory Tests Test 07/17/21 06:15 07/18/21 07:45 White Blood Count 10.7 x10^3/uL (4.0-11.0) 13.1 x10^3/uL (4.0-11.0) Red Blood Count 3.94 x10^6/uL (3.50-5.40) 4.20 x10^6/uL (3.50-5.40) Hemoglobin 12.8 g/dL (12.0-15.5) 13.7 g/dL (12.0-15.5) Hematocrit 38.4 % (36.0-47.0) 41.4 % (36.0-47.0) Mean Corpuscular Volume 98 fL (79-100) 99 fL (79-100) Mean Corpuscular Hemoglobin 33 pg (25-35) 33 pg (25-35) Mean Corpuscular Hemoglobin Concent 33 g/dL (31-37) 33 g/dL (31-37) Red Cell Distribution Width 13.8 % (11.5-14.5) 14.0 % (11.5-14.5) Platelet Count 262 x10^3/uL (140-400) 291 x10^3/uL (140-400) Neutrophils (%) (Auto) 86 % (31-73) 85 % (31-73) Lymphocytes (%) (Auto) 6 % (24-48) 7 % (24-48) Monocytes (%) (Auto) 8 % (0-9) 7 % (0-9) Eosinophils (%) (Auto) 0 % (0-3) 0 % (0-3) Basophils (%) (Auto) 0 % (0-3) 0 % (0-3) Neutrophils # (Auto) 9.2 x10^3/uL (1.8-7.7) 11.2 x10^3/uL (1.8-7.7) Lymphocytes # (Auto) 0.7 x10^3/uL (1.0-4.8) 0.9 x10^3/uL (1.0-4.8) Monocytes # (Auto) 0.9 x10^3/uL (0.0-1.1) 1.0 x10^3/uL (0.0-1.1) Eosinophils # (Auto) 0.0 x10^3/uL (0.0-0.7) 0.0 x10^3/uL (0.0-0.7) Basophils # (Auto) 0.0 x10^3/uL (0.0-0.2) 0.0 x10^3/uL (0.0-0.2) Sodium Level 140 mmol/L (136-145) 138 mmol/L (136-145) Potassium Level 3.5 mmol/L (3.5-5.1) 3.7 mmol/L (3.5-5.1) Chloride Level 104 mmol/L (98-107) 101 mmol/L (98-107) Carbon Dioxide Level 24 mmol/L (21-32) 22 mmol/L (21-32) Anion Gap 12 (6-14) 15 (6-14) Blood Urea Nitrogen 17 mg/dL (7-20) 15 mg/dL (7-20) Creatinine 0.8 mg/dL (0.6-1.0) 0.7 mg/dL (0.6-1.0) Estimated GFR (Cockcroft-Gault) 69.2 80.7 BUN/Creatinine Ratio 21 (6-20) 21 (6-20) Glucose Level 85 mg/dL (70-99) 73 mg/dL (70-99) Calcium Level 7.4 mg/dL (8.5-10.1) 7.4 mg/dL (8.5-10.1) Total Bilirubin 0.3 mg/dL (0.2-1.0) 0.6 mg/dL (0.2-1.0) Aspartate Amino Transf (AST/SGOT) 17 U/L (15-37) 15 U/L (15-37) Alanine Aminotransferase (ALT/SGPT) 24 U/L (14-59) 23 U/L (14-59) Alkaline Phosphatase 54 U/L (46-116) 60 U/L (46-116) Total Protein 6.0 g/dL (6.4-8.2) 6.0 g/dL (6.4-8.2) Albumin 2.6 g/dL (3.4-5.0) 2.4 g/dL (3.4-5.0) Albumin/Globulin Ratio 0.8 (1.0-1.7) 0.7 (1.0-1.7) Laboratory Tests Test 07/18/21 07:45 White Blood Count 13.1 x10^3/uL (4.0-11.0) Red Blood Count 4.20 x10^6/uL (3.50-5.40) Hemoglobin 13.7 g/dL (12.0-15.5) Hematocrit 41.4 % (36.0-47.0) Mean Corpuscular Volume 99 fL (79-100) Mean Corpuscular Hemoglobin 33 pg (25-35) Mean Corpuscular Hemoglobin Concent 33 g/dL (31-37) Red Cell Distribution Width 14.0 % (11.5-14.5) Platelet Count 291 x10^3/uL (140-400) Neutrophils (%) (Auto) 85 % (31-73) Lymphocytes (%) (Auto) 7 % (24-48) Monocytes (%) (Auto) 7 % (0-9) Eosinophils (%) (Auto) 0 % (0-3) Basophils (%) (Auto) 0 % (0-3) Neutrophils # (Auto) 11.2 x10^3/uL (1.8-7.7) Lymphocytes # (Auto) 0.9 x10^3/uL (1.0-4.8) Monocytes # (Auto) 1.0 x10^3/uL (0.0-1.1) Eosinophils # (Auto) 0.0 x10^3/uL (0.0-0.7) Basophils # (Auto) 0.0 x10^3/uL (0.0-0.2) Sodium Level 138 mmol/L (136-145) Potassium Level 3.7 mmol/L (3.5-5.1) Chloride Level 101 mmol/L (98-107) Carbon Dioxide Level 22 mmol/L (21-32) Anion Gap 15 (6-14) Blood Urea Nitrogen 15 mg/dL (7-20) Creatinine 0.7 mg/dL (0.6-1.0) Estimated GFR (Cockcroft-Gault) 80.7 BUN/Creatinine Ratio 21 (6-20) Glucose Level 73 mg/dL (70-99) Calcium Level 7.4 mg/dL (8.5-10.1) Total Bilirubin 0.6 mg/dL (0.2-1.0) Aspartate Amino Transf (AST/SGOT) 15 U/L (15-37) Alanine Aminotransferase (ALT/SGPT) 23 U/L (14-59) Alkaline Phosphatase 60 U/L (46-116) Total Protein 6.0 g/dL (6.4-8.2) Albumin 2.4 g/dL (3.4-5.0) Albumin/Globulin Ratio 0.7 (1.0-1.7) Problem List tachycardia, 180s, ekg and cardiac consult pending WBC up to 13--pain is less close observation, possible CT next 1-2 days Justicifation of Admission Dx: Justifications for Admission: Justification of Admission Dx: Yes Comments: diverticulitis KELSEY PEREYRA SNAILER Jul 18, 2021 09:44
--- NOTE | 2021-07-18 10:28 | EKG ---
[facility] [address] [place] [address] Test Date: 2021-07-18 Test Time: 10:26:29 Pat Name: MARIANA RING Department: Room: [facility] Gender: F Relationship Associate: ASPEN : 1940 Requested By: WILTON BEGUM Order Number: [id number] Reading MD: Sanjay Do Measurements Intervals Lynch Rate: 125 P: 65 CA: 112 QRS: -10 QRSD: 62 T: 64 QT: 322 QTc: 467 Interpretive Statements SINUS TACHYCARDIA LEFTWARD AXIS QRS(T) CONTOUR ABNORMALITY CONSISTENT WITH ANTEROSEPTAL INFARCT AGE UNDETERMINED T ABNORMALITY IN HIGH LATERAL LEADS ABNORMAL ECG RI6.02 No previous ECG available for comparison Electronically Signed On 07-18-2021 12:26:46 SKY DIVER by Sanjay Do
--- NOTE | 2021-07-18 10:30 | NUR ---
SW following. Discussed with RN, awaiting diet advancement. No surgical plans per RN. Cardiology consulted. RN advised no SW needs at this time. SW will continue to follow.
--- NOTE | 2021-07-18 10:53 | PDOC2 ---
CARDIAC CONSULT DATE OF CONSULT Date of Consult DATE: 07/18/21 TIME: 10:41 REASON FOR CONSULT Reason for Consult: tachycardia REFERRING PHYSICIAN Referring Physician: Dr. Saleh SOURCE Source: Chart review, Patient HISTORY OF PRESENT ILLNESS HISTORY OF PRESENT ILLNESS This is a 81 yo female who presented to [facility] secondary to abdominal pain. Patient reports abdominal pain for a couple of days prior to admission. Does have a history of constipation and reports admission to [facility] about 6 months ago for bowel obstruction. CT abdomen/pelvis with evidence of diverticulitis with microperforation. Patient was transferred to [facility] for further evaluation and treatment. This morning, patient became significantly tachycardiac, which prompted this consult. Initial EKG noted with Sinus tachycardia with a rate of 125. Patient was transferred to 6th floor and placement on tele. Noted in SVT with a rate on 180. IV Digoxin was administered. She denies any chest pain, palpitations, dizziness, diaphoresis, or SOA. Med list includes metoprolol and Cardizem. Patient reports she is on these for BP control and has not history of cardiac arrhythmias or rapid heartbeat . PAST MEDICAL HISTORY Cardiovascular: HTN, Hyperlipidemia, Other (carotid arterty disease) Pulmonary: COPD GI: Other (SBO) Musculoskeletal: Osteoarthritis PAST SURGICAL HISTORY Past Surgical History: Cataract Removal FAMILY HISTORY Family History: Hypertension SOCIAL HISTORY Smoke: Quit ALCOHOL: none Drugs: None Lives: with Family CURRENT MEDICATIONS CURRENT MEDICATIONS Current Medications Medications (Trade) Dose Ordered Sig/Shelby Route PRN Reason Start Time Stop Time Status Last Admin Dose Admin Lisinopril (Prinivil) 10 mg DAILY PO 07/18/21 09:00 07/18/21 07:28 Metoprolol Succinate (Toprol Xl) 50 mg DAILY PO 07/18/21 09:00 07/18/21 07:27 ALLERGIES ALLERGIES: Coded Allergies: No Known Medication Allergies (Verified Allergy, Unknown, 07/16/21) ROS Review of System 14 point ROS conducted with pertinent positives noted above in HPI PHYSICAL EXAM General: Alert, Oriented X3, Cooperative, No acute distress HEENT: Atraumatic Lungs: Clear to auscultation Heart: Other (SVT rate 180) Abdomen: Soft, Other (tenderness ) Extremities: No edema Skin: No significant lesion Neuro: Normal speech, Sensation intact Psych/Mental Status: Mental status NL, Mood NL MUSCULOSKELETAL: Osteoarthritic changes both hands VITALS/I&O VITALS/I&O: Vital Signs Date Time Temp Pulse Resp B/P (MAP) Pulse Ox O2 Delivery O2 Flow Rate FiO2 07/18/21 08:17 97.4 183 22 123/62 (82) 97 Nasal Cannula 2.0 97.4 I & O 07/17/21 07/17/21 07/18/21 15:00 23:00 07:00 Output Total 0 ml 100 ml Balance 0 ml -100 ml LABS Lab: Laboratory Tests Test 07/18/21 07:45 White Blood Count 13.1 x10^3/uL (4.0-11.0) H Red Blood Count 4.20 x10^6/uL (3.50-5.40) Hemoglobin 13.7 g/dL (12.0-15.5) Hematocrit 41.4 % (36.0-47.0) Mean Corpuscular Volume 99 fL (79-100) Mean Corpuscular Hemoglobin 33 pg (25-35) Mean Corpuscular Hemoglobin Concent 33 g/dL (31-37) Red Cell Distribution Width 14.0 % (11.5-14.5) Platelet Count 291 x10^3/uL (140-400) Neutrophils (%) (Auto) 85 % (31-73) H Lymphocytes (%) (Auto) 7 % (24-48) L Monocytes (%) (Auto) 7 % (0-9) Eosinophils (%) (Auto) 0 % (0-3) Basophils (%) (Auto) 0 % (0-3) Neutrophils # (Auto) 11.2 x10^3/uL (1.8-7.7) H Lymphocytes # (Auto) 0.9 x10^3/uL (1.0-4.8) L Monocytes # (Auto) 1.0 x10^3/uL (0.0-1.1) Eosinophils # (Auto) 0.0 x10^3/uL (0.0-0.7) Basophils # (Auto) 0.0 x10^3/uL (0.0-0.2) Sodium Level 138 mmol/L (136-145) Potassium Level 3.7 mmol/L (3.5-5.1) Chloride Level 101 mmol/L (98-107) Carbon Dioxide Level 22 mmol/L (21-32) Anion Gap 15 (6-14) H Blood Urea Nitrogen 15 mg/dL (7-20) Creatinine 0.7 mg/dL (0.6-1.0) Estimated GFR (Cockcroft-Gault) 80.7 BUN/Creatinine Ratio 21 (6-20) H Glucose Level 73 mg/dL (70-99) Calcium Level 7.4 mg/dL (8.5-10.1) L Total Bilirubin 0.6 mg/dL (0.2-1.0) Aspartate Amino Transferase (AST) 15 U/L (15-37) Alanine Aminotransferase (ALT) 23 U/L (14-59) Alkaline Phosphatase 60 U/L (46-116) Total Protein 6.0 g/dL (6.4-8.2) L Albumin 2.4 g/dL (3.4-5.0) L Albumin/Globulin Ratio 0.7 (1.0-1.7) L Laboratory Tests 07/18/21 07:45 Laboratory Tests 07/18/21 07:[address] abdomen/pelvis 1. No pulmonary embolism or aortic dissection. 2. Extremely severe calcified and noncalcified atheromatous plaque burden throughout the aorta, aortic branch vessels and coronary arteries. Luminal narrowing of the abdominal aorta up to approximately 50%. Severe stenosis at the celiac, right renal artery and ERIKA origins. Long segment severe stenoses of both common iliac arteries and multifocal less pronounced stenoses at additional locations as described in the body of the report. 3. Scattered free gas throughout the abdomen and pelvis. This appears to be originating from sigmoid colonic perforation which may be secondary to p erforated diverticulitis with an ischemic etiology not able to be excluded. No portal or gastroepiploic venous gas to help confirm the latter. Portions of the sigmoid colon wall are difficult to delineate and there may be a poorly marginated gas/fluid collection at the left hemipelvis, such as in the region of image 94 series 8. No findings to indicate that perforation arises from the stomach or small bowel. 4. Additional chronic observations to include severe emphysema. Moderate degree of constipation. ASSESSMENT/PLAN ASSESSMENT/PLAN 1. Abdominal pain; CT abdomen pelvis notable for diverticulitis with microperforation. GS following 2. PSVT; new finding in setting of above 3. Hypertension; presently low end 4. Hyperlipidemia 5. Chronic respiratory failure with underlying COPD; O2 dependent 6. Chronic constipation with h/o bowel obstruction 7. Leukocytosis, lactic acidosis 8. CAD; coronary calcifications noted on CT 9. PAD; extensive diffuse plaquing noted with narrowing of the abdominal aorta up to approximately 50%. Severe stenosis at the celiac, right renal artery and ERIKA origins, and long segment severe stenoses of both common iliac arteries. Recommendations S/p IV Dig TSH Lipids Repeat EKG Echo to assess LV systolic function Continue metoprolol; will covert to metoprolol IVP q6 as patient is NPO. Start Cardizem gtt as BP allows Consider antiarrhythmia therapy if recurrent tachyarrhythmia noted Secondary prevention as able Outpatient ischemic evaluation given risk factors Follow CELESTINE Clay APRN Jul 18, 2021 10:52
[2021-07-18] MEDS ORDERED: DIGOXIN IV 500 MCG/2 ML AMPUL. IV ONE (11:00)
--- NOTE | 2021-07-18 11:27 | PN ---
DATE: 07/18/2021 SUBJECTIVE: The patient is resting, slightly propped up in bed, in no apparent respiratory distress. She is awake, alert. On questioning her, she denied any chest pain. Did show a complaint of shortness of breath on exertion. Denied any abdominal pain. PHYSICAL EXAMINATION: GENERAL: When I examined her, she looked well and was clearly in no apparent respiratory distress. No pallor, jaundice, cyanosis or thyromegaly. No jugular venous distention. No limb edema. VITAL SIGNS: Her heart rate was 183, blood pressure was 123/62, temperature was 97.4, respiratory rate was 22 and oxygen saturation was 97% on 2 liters of oxygen. HEAD, EYES, EARS, NOSE, AND THROAT: Normocephalic, atraumatic. NECK: Supple. HEART: The patient seems to be in sinus tachycardia or supraventricular tachycardia. CHEST: Shows central trachea, equal bilateral chest expansion, air entry, vesicular breath sounds. No crepitation or rhonchi. ABDOMEN: Distended, soft with mild tenderness in the left lower quadrant. No guarding or rigidity. No organomegaly. All hernial orifices intact. Bowel sounds normal. NEUROLOGIC: She is awake, alert, responding appropriately. Cranial nerves intact. She moves extremities without difficulty. Her intake was incompletely recorded, output was 1400. LABORATORY DATA: Showed a white cell count slightly up at 13,100, hemoglobin 13.7, hematocrit 41, MCV 99 and platelet count 291,000 with manual differential showed 85% polymorphs, 7% lymphocytes, 7% monocytes. Sodium 138, potassium 3.7, chloride 101, bicarbonate 22, anion gap of 15, BUN 15, creatinine 0.7. Estimated GFR was 80 mL per minute. Her glucose was 73, calcium was 7.4. Total bilirubin, AST, ALT, alkaline phosphatase were normal. Total protein 6, albumin is 2.4. Her prothrombin time, INR and APTT were normal. ASSESSMENT: 1. Probably either a supraventricular tachycardia versus atrial fibrillation with rapid ventricular response. The patient to be transferred to a monitored bed and she probably needs treatment with adenosine or Cardizem drip. Her EKG showed that she was in sinus tachycardia with a heart rate of 125. However, when I saw her heart rate was 182. Other medical problems: 2. Acute diverticulitis with microperforation. 3. Hyperlipidemia. 4. Chronic obstructive pulmonary disease that is oxygen dependent. 5. 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 PLAN: To keep the patient n.p.o., continue with IV fluid. Continue with IV antibiotic. Continue with fentanyl for pain, ondansetron for nausea, hydralazine for high blood pressure. KATELYN/ANNI DR: Zach TID: [id number]
[2021-07-18] MEDS ORDERED: DILT180C2 PO (11:39)
[2021-07-18] MEDS ORDERED: METOPROLOL IV PUSH 5 MG/5 ML VIAL. IVP ONE (13:45)
[2021-07-18 14:52] LABS: CHOLESTEROL/HDL RATIO 2.4
[2021-07-18] MEDS ORDERED: METOPROLOL IV PUSH 5 MG/5 ML VIAL. IVP SCH (15:00)
[2021-07-18] MEDS ORDERED: AMIODARONE 150 MG in IV DEXTROSE 5% 100ML 100 ML IV ONE (15:45)
[2021-07-18] MEDS: METOPROLOL IV PUSH 5 MG/5 ML VIAL. IVP SCH (17:40)
[2021-07-18] MEDS: SIMVASTATIN 40 MG TABLET. PO SCH (21:33)
[2021-07-19] MEDS: PIPERACILLIN/TAZOBACTAM 3.375 GM in IV NORMAL SALINE 50ML 50 ML IV SCH ×4 (01:26→17:22)
[2021-07-19] MEDS: METOPROLOL IV PUSH 5 MG/5 ML VIAL. IVP SCH ×4 (01:29→17:25)
[2021-07-19 03:00] VITALS: BP 155/71
[2021-07-19] MEDS: AMIODARONE 450 MG in IV DEXTROSE 5% 250 ML IV PRN ×2 (04:00→17:36)
[2021-07-19 04:40] LABS: BASO % 0 % (0-3); EOS # 0.1 x10^3/uL (0.0-0.7); EOS % 1 % (0-3); HEMATOCRIT 34.7 % (36.0-47.0); HEMOGLOBIN 11.8 g/dL (12.0-15.5); LYMPH # 0.7 x10^3/uL (1.0-4.8); LYMPH % 7 % (24-48); MEAN CORPUSCULAR HEMOGLOBIN 33 pg (25-35); MEAN CORPUSCULAR HGB CONC 34 g/dL (31-37); MEAN CORPUSCULAR VOLUME 96 fL (79-100); MONO # 0.8 x10^3/uL (0.0-1.1); MONO % 8 % (0-9); NEUT # 8.2 x10^3/uL (1.8-7.7); NEUT % 84 % (31-73); PLATELET COUNT 240 x10^3/uL (140-400); RED BLOOD COUNT 3.61 x10^6/uL (3.50-5.40); RED CELL DISTRIBUTION WIDTH 13.8 % (11.5-14.5); WHITE BLOOD COUNT 9.8 x10^3/uL (4.0-11.0)
--- NOTE | 2021-07-19 05:05 | NUR ---
PT HAS A POTASSIUM, REPORTED TO DR BEGUM. SEE ORDERS. LCRN
[2021-07-19 05:06] LABS: ALBUMIN 1.9 g/dL (3.4-5.0); ALBUMIN/GLOBULIN RATIO 0.6 (1.0-1.7); CALCIUM 6.8 mg/dL (8.5-10.1); CREATININE 0.6 mg/dL (0.6-1.0); GFR 96.4; MAGNESIUM 1.8 mg/dL (1.8-2.4); TOTAL BILIRUBIN 0.4 mg/dL (0.2-1.0); TOTAL PROTEIN 5.1 g/dL (6.4-8.2)
[2021-07-19 05:27] LABS: POTASSIUM 2.6 mmol/L (3.5-5.1)
[2021-07-19] MEDS: POTASSIUM CL 40MEQ D5-0.45NACL 1,000 ML IV SCH ×2 (05:45→16:02)
[2021-07-19 06:35] VITALS: BP 150/66
[2021-07-19] MEDS: ASPIRIN CHEWABLE 81 MG TABLET. PO SCH (06:56)
[2021-07-19] MEDS: LISINOPRIL 10 MG TABLET PO SCH (06:57)
[2021-07-19] MEDS: MULTIVITAMIN with MINERAL TABLET. PO SCH (06:57)
[2021-07-19] MEDS: CALCIUM CARBONATE 500 MG TABLET PO SCH (06:57)
[2021-07-19 11:00] VITALS: BP 164/64
--- NOTE | 2021-07-19 11:55 | NUR ---
SS following up with discharge planning. SS reviewed pt chart and discussed with pt RN. Pt is currently requiring oxygen at two liters nasal canula. Pt has home oxygen. Pt on Amiodarone drip. NPO. Pt on IV Zosyn. SS will continue to follow for discharge planning.
--- NOTE | 2021-07-19 12:20 | PDOC ---
LETI NEWSOME DIESEL SERVICE JOURNEYMAN 07/19/21 1220: CARDIO Progress Notes Date and Time Date of Service 07/19/2021 Time of Evaluation 1140 Subjective Subjective: No Chest Pain, No shortness of breath, No Palpitations Vitals Vitals Vital Signs Date Time Temp Pulse Resp B/P (MAP) Pulse Ox O2 Delivery O2 Flow Rate FiO2 07/19/21 11:48 93 146/64 07/19/21 11:00 97.9 20 98 Nasal Cannula 2.0 97.9 Weight Weight [ ] Input and Output Intake and Output Intake and Output 07/19/21 07:00 Intake Total 0 ml Output Total 250 ml Balance -250 ml Intake Oral 0 ml Output Urine Total 250 ml # Bowel Movements 2 Laboratory Labs Laboratory Tests Test 07/19/21 04:00 White Blood Count 9.8 x10^3/uL (4.0-11.0) Red Blood Count 3.61 x10^6/uL (3.50-5.40) Hemoglobin 11.8 g/dL (12.0-15.5) Hematocrit 34.7 % (36.0-47.0) Mean Corpuscular Volume 96 fL (79-100) Mean Corpuscular Hemoglobin 33 pg (25-35) Mean Corpuscular Hemoglobin Concent 34 g/dL (31-37) Red Cell Distribution Width 13.8 % (11.5-14.5) Platelet Count 240 x10^3/uL (140-400) Neutrophils (%) (Auto) 84 % (31-73) Lymphocytes (%) (Auto) 7 % (24-48) Monocytes (%) (Auto) 8 % (0-9) Eosinophils (%) (Auto) 1 % (0-3) Basophils (%) (Auto) 0 % (0-3) Neutrophils # (Auto) 8.2 x10^3/uL (1.8-7.7) Lymphocytes # (Auto) 0.7 x10^3/uL (1.0-4.8) Monocytes # (Auto) 0.8 x10^3/uL (0.0-1.1) Eosinophils # (Auto) 0.1 x10^3/uL (0.0-0.7) Basophils # (Auto) 0.0 x10^3/uL (0.0-0.2) Sodium Level 138 mmol/L (136-145) Potassium Level 2.6 mmol/L (3.5-5.1) Chloride Level 104 mmol/L (98-107) Carbon Dioxide Level 21 mmol/L (21-32) Anion Gap 13 (6-14) Blood Urea Nitrogen 15 mg/dL (7-20) Creatinine 0.6 mg/dL (0.6-1.0) Estimated GFR (Cockcroft-Gault) 96.4 BUN/Creatinine Ratio 25 (6-20) Glucose Level 79 mg/dL (70-99) Calcium Level 6.8 mg/dL (8.5-10.1) Magnesium Level 1.8 mg/dL (1.8-2.4) Total Bilirubin 0.4 mg/dL (0.2-1.0) Aspartate Amino Transf (AST/SGOT) 17 U/L (15-37) Alanine Aminotransferase (ALT/SGPT) 20 U/L (14-59) Alkaline Phosphatase 46 U/L (46-116) Total Protein 5.1 g/dL (6.4-8.2) Albumin 1.9 g/dL (3.4-5.0) Albumin/Globulin Ratio 0.6 (1.0-1.7) Thyroid Stimulating Hormone (TSH) 0.653 uIU/mL (0.358-3.74) Microbiology Micro Microbiology 07/16/21 Blood Culture - Preliminary, Resulted NO GROWTH AFTER 3 DAYS Physical Exam HEENT: Neck Supple W Full Motion Chest: Symmetric LUNGS: Other (diffuze wheeze) Heart: RRR (SR/ST) Abdomen: Soft N/T Extremities: No Calf Tenderness Neurology: alert, oriented, follow commands Assessment Assessment 1. Abdominal pain; CT abdomen pelvis notable for diverticulitis with microperforation. GS following 2. PSVT; new finding in setting of above. Maintaining SR after amiodarone 3. Hypertension; controlled 4. Hyperlipidemia 5. Chronic respiratory failure with underlying COPD; O2 dependent 6. Chronic constipation with h/o bowel obstruction 7. Leukocytosis, lactic acidosis 8. CAD; coronary calcifications noted on CT 9. PAD; extensive diffuse plaquing noted with narrowing of the abdominal aorta up to approximately 50%. Severe stenosis at the celiac, right renal artery and ERIKA origins, and long segment severe stenoses of both common iliac arteries. Recommendations Outpt ischemic w/u and PAD w/u as well Continue amiodarone IV for now while NPO. IV lopressor and if continues to be wheezy then this could be held no SOA at this time TTE Secondary prevention as able. Freddie Davies Outpatient ischemic evaluation given risk factors Follow GS recs Justicifation of Admission Dx: Justifications for Admission: Justification of Admission Dx: Yes BAIRON ZUÑIGA MD 07/19/212057: CARDIO Progress Notes Assessment Assessment The patient was seen and examined. I agree with our warehouse packer evaluation and plan. Abdominal pain. Continue present treatment and work up. PSVT. Now sinus. Continue present treatment and monitor. HTN. Continue to monitor. LETI NEWSOME APRN Jul 19, 2021 12:20 BAIRON ZUÑIGA MD Jul 19, 2021 20:58
--- NOTE | 2021-07-19 12:40 | PDOC ---
SURGICAL PROGRESS NOTE DATE: 07/19/21 TIME: 12:39 Subjective resting denies pain having stools Vital Signs Vital Signs Date Time Temp Pulse Resp B/P (MAP) Pulse Ox O2 Delivery O2 Flow Rate FiO2 07/19/21 11:48 93 146/64 07/19/21 11:00 97.9 20 98 Nasal Cannula 2.0 97.9 I&O Intake and Output 07/19/21 07:00 Intake Total 0 ml Output Total 250 ml Balance -250 ml Intake Oral 0 ml Output Urine Total 250 ml # Bowel Movements 2 General: Alert, Cooperative Abdomen: Soft, No tenderness Labs Laboratory Tests Test 07/18/21 07:45 07/19/21 04:00 White Blood Count 13.1 x10^3/uL (4.0-11.0) 9.8 x10^3/uL (4.0-11.0) Red Blood Count 4.20 x10^6/uL (3.50-5.40) 3.61 x10^6/uL (3.50-5.40) Hemoglobin 13.7 g/dL (12.0-15.5) 11.8 g/dL (12.0-15.5) Hematocrit 41.4 % (36.0-47.0) 34.7 % (36.0-47.0) Mean Corpuscular Volume 99 fL (79-100) 96 fL (79-100) Mean Corpuscular Hemoglobin 33 pg (25-35) 33 pg (25-35) Mean Corpuscular Hemoglobin Concent 33 g/dL (31-37) 34 g/dL (31-37) Red Cell Distribution Width 14.0 % (11.5-14.5) 13.8 % (11.5-14.5) Platelet Count 291 x10^3/uL (140-400) 240 x10^3/uL (140-400) Neutrophils (%) (Auto) 85 % (31-73) 84 % (31-73) Lymphocytes (%) (Auto) 7 % (24-48) 7 % (24-48) Monocytes (%) (Auto) 7 % (0-9) 8 % (0-9) Eosinophils (%) (Auto) 0 % (0-3) 1 % (0-3) Basophils (%) (Auto) 0 % (0-3) 0 % (0-3) Neutrophils # (Auto) 11.2 x10^3/uL (1.8-7.7) 8.2 x10^3/uL (1.8-7.7) Lymphocytes # (Auto) 0.9 x10^3/uL (1.0-4.8) 0.7 x10^3/uL (1.0-4.8) Monocytes # (Auto) 1.0 x10^3/uL (0.0-1.1) 0.8 x10^3/uL (0.0-1.1) Eosinophils # (Auto) 0.0 x10^3/uL (0.0-0.7) 0.1 x10^3/uL (0.0-0.7) Basophils # (Auto) 0.0 x10^3/uL (0.0-0.2) 0.0 x10^3/uL (0.0-0.2) Sodium Level 138 mmol/L (136-145) 138 mmol/L (136-145) Potassium Level 3.7 mmol/L (3.5-5.1) 2.6 mmol/L (3.5-5.1) Chloride Level 101 mmol/L (98-107) 104 mmol/L (98-107) Carbon Dioxide Level 22 mmol/L (21-32) 21 mmol/L (21-32) Anion Gap 15 (6-14) 13 (6-14) Blood Urea Nitrogen 15 mg/dL (7-20) 15 mg/dL (7-20) Creatinine 0.7 mg/dL (0.6-1.0) 0.6 mg/dL (0.6-1.0) Estimated GFR (Cockcroft-Gault) 80.7 96.4 BUN/Creatinine Ratio 21 (6-20) 25 (6-20) Glucose Level 73 mg/dL (70-99) 79 mg/dL (70-99) Calcium Level 7.4 mg/dL (8.5-10.1) 6.8 mg/dL (8.5-10.1) Total Bilirubin 0.6 mg/dL (0.2-1.0) 0.4 mg/dL (0.2-1.0) Aspartate Amino Transf (AST/SGOT) 15 U/L (15-37) 17 U/L (15-37) Alanine Aminotransferase (ALT/SGPT) 23 U/L (14-59) 20 U/L (14-59) Alkaline Phosphatase 60 U/L (46-116) 46 U/L (46-116) Total Protein 6.0 g/dL (6.4-8.2) 5.1 g/dL (6.4-8.2) Albumin 2.4 g/dL (3.4-5.0) 1.9 g/dL (3.4-5.0) Albumin/Globulin Ratio 0.7 (1.0-1.7) 0.6 (1.0-1.7) Triglycerides Level 100 mg/dL (0-150) Cholesterol Level 151 mg/dL (0-200) LDL Cholesterol, Calculated 67 mg/dL (0-100) VLDL Cholesterol, Calculated 20 mg/dL (0-40) Non-HDL Cholesterol Calculated 87 mg/dL (0-129) HDL Cholesterol 64 mg/dL (40-60) Cholesterol/HDL Ratio 2.4 Magnesium Level 1.8 mg/dL (1.8-2.4) Thyroid Stimulating Hormone (TSH) 0.653 uIU/mL (0.358-3.74) Laboratory Tests Test 07/19/21 04:00 White Blood Count 9.8 x10^3/uL (4.0-11.0) Red Blood Count 3.61 x10^6/uL (3.50-5.40) Hemoglobin 11.8 g/dL (12.0-15.5) Hematocrit 34.7 % (36.0-47.0) Mean Corpuscular Volume 96 fL (79-100) Mean Corpuscular Hemoglobin 33 pg (25-35) Mean Corpuscular Hemoglobin Concent 34 g/dL (31-37) Red Cell Distribution Width 13.8 % (11.5-14.5) Platelet Count 240 x10^3/uL (140-400) Neutrophils (%) (Auto) 84 % (31-73) Lymphocytes (%) (Auto) 7 % (24-48) Monocytes (%) (Auto) 8 % (0-9) Eosinophils (%) (Auto) 1 % (0-3) Basophils (%) (Auto) 0 % (0-3) Neutrophils # (Auto) 8.2 x10^3/uL (1.8-7.7) Lymphocytes # (Auto) 0.7 x10^3/uL (1.0-4.8) Monocytes # (Auto) 0.8 x10^3/uL (0.0-1.1) Eosinophils # (Auto) 0.1 x10^3/uL (0.0-0.7) Basophils # (Auto) 0.0 x10^3/uL (0.0-0.2) Sodium Level 138 mmol/L (136-145) Potassium Level 2.6 mmol/L (3.5-5.1) Chloride Level 104 mmol/L (98-107) Carbon Dioxide Level 21 mmol/L (21-32) Anion Gap 13 (6-14) Blood Urea Nitrogen 15 mg/dL (7-20) Creatinine 0.6 mg/dL (0.6-1.0) Estimated GFR (Cockcroft-Gault) 96.4 BUN/Creatinine Ratio 25 (6-20) Glucose Level 79 mg/dL (70-99) Calcium Level 6.8 mg/dL (8.5-10.1) Magnesium Level 1.8 mg/dL (1.8-2.4) Total Bilirubin 0.4 mg/dL (0.2-1.0) Aspartate Amino Transf (AST/SGOT) 17 U/L (15-37) Alanine Aminotransferase (ALT/SGPT) 20 U/L (14-59) Alkaline Phosphatase 46 U/L (46-116) Total Protein 5.1 g/dL (6.4-8.2) Albumin 1.9 g/dL (3.4-5.0) Albumin/Globulin Ratio 0.6 (1.0-1.7) Thyroid Stimulating Hormone (TSH) 0.653 uIU/mL (0.358-3.74) Problem List improved, no fevers, wbc normal, benign exam start clears Justicifation of Admission Dx: Justifications for Admission: Justification of Admission Dx: Yes KELSEY PEREYRA CAPTION WRITER Jul 19, 2021 12:40
[2021-07-19 14:38] VITALS: BP 168/64
[2021-07-19 16:28] LABS: CALCIUM 7.4 mg/dL (8.5-10.1); CREATININE 0.8 mg/dL (0.6-1.0); GFR 69.2; POTASSIUM 3.3 mmol/L (3.5-5.1)
[2021-07-19 18:21] VITALS: BP 171/67
[2021-07-19] MEDS: SIMVASTATIN 40 MG TABLET. PO SCH (21:37)
[2021-07-19 23:00] VITALS: BP 161/60
[2021-07-20] MEDS: PIPERACILLIN/TAZOBACTAM 3.375 GM in IV NORMAL SALINE 50ML 50 ML IV SCH ×4 (00:24→18:00)
[2021-07-20] MEDS: METOPROLOL IV PUSH 5 MG/5 ML VIAL. IVP SCH ×4 (00:25→18:00)
[2021-07-20 02:40] VITALS: BP 164/68
[2021-07-20 04:57] LABS: CALCIUM 7.1 mg/dL (8.5-10.1); CREATININE 0.6 mg/dL (0.6-1.0); GFR 96.4; POTASSIUM 3.1 mmol/L (3.5-5.1)
[2021-07-20 07:00] VITALS: BP 176/75
[2021-07-20] MEDS: ASPIRIN CHEWABLE 81 MG TABLET. PO SCH (08:07)
[2021-07-20] MEDS: CALCIUM CARBONATE 500 MG TABLET PO SCH (08:07)
[2021-07-20] MEDS: MULTIVITAMIN with MINERAL TABLET. PO SCH (08:07)
[2021-07-20] MEDS: LISINOPRIL 10 MG TABLET PO SCH (08:07)
[2021-07-20] MEDS: POTASSIUM CL 40MEQ D5-0.45NACL 1,000 ML IV SCH (08:10)
--- NOTE | 2021-07-20 09:06 | PDOC ---
SURGICAL PROGRESS NOTE DATE: 07/20/21 TIME: 09:04 Subjective just back to bed from commode, very SOA denies abdominal pain tolerating liquids Vital Signs Vital Signs Date Time Temp Pulse Resp B/P (MAP) Pulse Ox O2 Delivery O2 Flow Rate FiO2 07/20/21 08:07 71 164/68 07/20/21 07:00 97.6 20 100 Nasal Cannula 2.0 97.6 I&O Intake and Output 07/20/21 07:00 Intake Total 2650 ml Output Total 1100 ml Balance 1550 ml Intake Oral 300 ml IV Total 2350 ml Output Urine Total 250 ml Urine/Stool Mix 850 ml # Voids 11 # Bowel Movements 10 General: Alert, Cooperative HEENT: Other (SOA) Abdomen: Soft, No tenderness Labs Laboratory Tests Test 07/19/21 04:00 07/19/21 16:05 07/20/21 04:00 White Blood Count 9.8 x10^3/uL (4.0-11.0) Red Blood Count 3.61 x10^6/uL (3.50-5.40) Hemoglobin 11.8 g/dL (12.0-15.5) Hematocrit 34.7 % (36.0-47.0) Mean Corpuscular Volume 96 fL (79-100) Mean Corpuscular Hemoglobin 33 pg (25-35) Mean Corpuscular Hemoglobin Concent 34 g/dL (31-37) Red Cell Distribution Width 13.8 % (11.5-14.5) Platelet Count 240 x10^3/uL (140-400) Neutrophils (%) (Auto) 84 % (31-73) Lymphocytes (%) (Auto) 7 % (24-48) Monocytes (%) (Auto) 8 % (0-9) Eosinophils (%) (Auto) 1 % (0-3) Basophils (%) (Auto) 0 % (0-3) Neutrophils # (Auto) 8.2 x10^3/uL (1.8-7.7) Lymphocytes # (Auto) 0.7 x10^3/uL (1.0-4.8) Monocytes # (Auto) 0.8 x10^3/uL (0.0-1.1) Eosinophils # (Auto) 0.1 x10^3/uL (0.0-0.7) Basophils # (Auto) 0.0 x10^3/uL (0.0-0.2) Sodium Level 138 mmol/L (136-145) 137 mmol/L (136-145) 138 mmol/L (136-145) Potassium Level 2.6 mmol/L (3.5-5.1) 3.3 mmol/L (3.5-5.1) 3.1 mmol/L (3.5-5.1) Chloride Level 104 mmol/L (98-107) 102 mmol/L (98-107) 105 mmol/L (98-107) Carbon Dioxide Level 21 mmol/L (21-32) 26 mmol/L (21-32) 24 mmol/L (21-32) Anion Gap 13 (6-14) 9 (6-14) 9 (6-14) Blood Urea Nitrogen 15 mg/dL (7-20) 8 mg/dL (7-20) 5 mg/dL (7-20) Creatinine 0.6 mg/dL (0.6-1.0) 0.8 mg/dL (0.6-1.0) 0.6 mg/dL (0.6-1.0) Estimated GFR (Cockcroft-Gault) 96.4 69.2 96.4 BUN/Creatinine Ratio 25 (6-20) Glucose Level 79 mg/dL (70-99) 159 mg/dL (70-99) 152 mg/dL (70-99) Calcium Level 6.8 mg/dL (8.5-10.1) 7.4 mg/dL (8.5-10.1) 7.1 mg/dL (8.5-10.1) Magnesium Level 1.8 mg/dL (1.8-2.4) Total Bilirubin 0.4 mg/dL (0.2-1.0) Aspartate Amino Transf (AST/SGOT) 17 U/L (15-37) Alanine Aminotransferase (ALT/SGPT) 20 U/L (14-59) Alkaline Phosphatase 46 U/L (46-116) Total Protein 5.1 g/dL (6.4-8.2) Albumin 1.9 g/dL (3.4-5.0) Albumin/Globulin Ratio 0.6 (1.0-1.7) Thyroid Stimulating Hormone (TSH) 0.653 uIU/mL (0.358-3.74) Laboratory Tests Test 07/19/21 16:05 07/20/21 04:00 Sodium Level 137 mmol/L (136-145) 138 mmol/L (136-145) Potassium Level 3.3 mmol/L (3.5-5.1) 3.1 mmol/L (3.5-5.1) Chloride Level 102 mmol/L (98-107) 105 mmol/L (98-107) Carbon Dioxide Level 26 mmol/L (21-32) 24 mmol/L (21-32) Anion Gap 9 (6-14) 9 (6-14) Blood Urea Nitrogen 8 mg/dL (7-20) 5 mg/dL (7-20) Creatinine 0.8 mg/dL (0.6-1.0) 0.6 mg/dL (0.6-1.0) Estimated GFR (Cockcroft-Gault) 69.2 96.4 Glucose Level 159 mg/dL (70-99) 152 mg/dL (70-99) Calcium Level 7.4 mg/dL (8.5-10.1) 7.1 mg/dL (8.5-10.1) Assessment/Plan diverticulitis benign abdominal exam, afebrile CBC in AM full liquids Justicifation of Admission Dx: Justifications for Admission: Justification of Admission Dx: Yes KELSEY PEREYRA APRN Jul 20, 2021 09:06
--- NOTE | 2021-07-20 10:42 | PN ---
DATE: 07/20/2021 SUBJECTIVE: The patient is resting flat, comfortably in bed, in no apparent distress. On questioning her, denied any complaint. No abdominal pain, no nausea, no vomiting, no chills, no rigors or fever. She had had a bowel movement and passing gas. The surgical team started her on clear liquid and advanced her to full liquid diet today. PHYSICAL EXAMINATION: GENERAL: When I examined her, she was pale, cachectic, but not jaundiced or cyanosed, no lymphadenopathy, no thyromegaly, no jugular venous distention. No limb edema. VITAL SIGNS: Her heart rate was 71, blood pressure is 164/68, temperature was 97.6, respiratory rate 20, and oxygen saturation was 100% on 2 liters of oxygen. HEAD, EYES, EARS, NOSE, AND THROAT: Normocephalic, atraumatic. NECK: Supple. HEART: Normal first and second heart sounds, no gallop or murmur. CHEST: Shows central trachea, equally reduced expansion, reduced air entry, vesicular breath sounds. I could not appreciate any crepitation or rhonchi. ABDOMEN: Distended, soft, nontender. NEUROLOGIC: She is grossly intact. Her intake was 2650, output was 1100. LABORATORY DATA: Her lab work showed a serum sodium 138, potassium 3.1, chloride 105, bicarbonate 24, anion gap of 9, BUN 5, creatinine 0.6. Estimated GFR was 96 mL per minute. Her glucose 152, calcium 7.1. ASSESSMENT: 1. Paroxysmal supraventricular tachycardia, currently in sinus rhythm. 2. Diverticulitis with microperforation, improving. The patient did not require any surgical intervention. She was started on a clear liquid diet and advanced to full liquid diet today. 3. Hypertension. 4. Hyperlipidemia. 5. Chronic hypoxic respiratory failure, oxygen dependent. 6. Chronic obstructive pulmonary disease. 7. Peripheral arterial disease with narrowing of the abdominal aorta after approximately 50% severe stenosis of the celiac right renal artery and inferior mesenteric artery origin, long segments of severe stenosis of both common iliac arteries. PLAN: I will discontinue her IV fluid and replenish her potassium orally. Meanwhile, continue with IV Zosyn. GERARDO DR: Zach TID: [id number]
[2021-07-20 11:11] VITALS: BP 193/85
[2021-07-20] MEDS: POTASSIUM CHLORIDE 20 MEQ TABLET.ER. PO SCH ×3 (12:03→20:43)
[2021-07-20 15:00] VITALS: BP 221/96
--- NOTE | 2021-07-20 15:34 | PDOC ---
PROGRESS NOTES Date of Service: DATE: 07/20/21 TIME: 15:34 Subjective Subjective No new complaints Objective Objective Vital Signs Date Time Temp Pulse Resp B/P (MAP) Pulse Ox O2 Delivery O2 Flow Rate FiO2 07/20/21 12:04 72 193/85 07/20/21 11:11 97.8 20 100 Nasal Cannula 2.0 97.8 Intake and Output 07/20/21 07:00 Intake Total 2650 ml Output Total 1100 ml Balance 1550 ml Intake Oral 300 ml IV Total 2350 ml Output Urine Total 250 ml Urine/Stool Mix 850 ml # Voids 11 # Bowel Movements 10 Physical Exam Abdomen: Soft, No tenderness Heart: Other (SVT rate 180) Extremities: No edema General: Alert, Cooperative HEENT: Other (SOA) Lungs: Clear to auscultation MUSCULOSKELETAL: Osteoarthritic changes both hands Neuro: Normal speech, Sensation intact Psych/Mental Status: Mental status NL, Mood NL Skin: No significant lesion Assessment Assessment 1. Abdominal pain; CT abdomen pelvis notable for diverticulitis with microperforation. GS following 2. PSVT; new finding in setting of above. Maintaining SR 3. Hypertension; controlled 4. Hyperlipidemia 5. Chronic respiratory failure with underlying COPD; O2 dependent 6. Chronic constipation with h/o bowel obstruction 7. Leukocytosis, lactic acidosis 8. CAD; coronary calcifications noted on CT 9. PAD; extensive diffuse plaquing noted with narrowing of the abdominal aorta up to approximately 50%. Severe stenosis at the celiac, right renal artery and ERIKA origins, and long segment severe stenoses of both common iliac arteries. Recommendations Outpt ischemic w/u and PAD w/u as well Secondary prevention as able. Outpatient echo and ischemic evaluation given risk factors Follow GS recs Comment Review of Relevant I have reviewed the following items autumn (where applicable) has been applied. Labs Laboratory Tests Test 07/19/21 16:05 07/20/21 04:00 Sodium Level 137 mmol/L (136-145) 138 mmol/L (136-145) Potassium Level 3.3 mmol/L (3.5-5.1) 3.1 mmol/L (3.5-5.1) Chloride Level 102 mmol/L (98-107) 105 mmol/L (98-107) Carbon Dioxide Level 26 mmol/L (21-32) 24 mmol/L (21-32) Anion Gap 9 (6-14) 9 (6-14) Blood Urea Nitrogen 8 mg/dL (7-20) 5 mg/dL (7-20) Creatinine 0.8 mg/dL (0.6-1.0) 0.6 mg/dL (0.6-1.0) Estimated GFR (Cockcroft-Gault) 69.2 96.4 Glucose Level 159 mg/dL (70-99) 152 mg/dL (70-99) Calcium Level 7.4 mg/dL (8.5-10.1) 7.1 mg/dL (8.5-10.1) Microbiology 07/16/21 Blood Culture - Preliminary, Resulted NO GROWTH AFTER 4 DAYS Medications Current Medications Potassium Chloride (Klor-Con) 40 meq TID PO Last administered on 07/20/21at 12:03; Start 07/20/21 at 10:00 Vitals/I & O Vital Sign - Last 24 Hours 07/19/21 07/19/21 07/19/21 07/19/21 17:25 18:21 20:00 23:00 Temp 97.9 98.2 97.9 98.2 Pulse 94 88 79 Resp 20 16 B/P (MAP) 168/64 171/67 (101) 161/60 (93) Pulse Ox 97 95 O2 Delivery Nasal Cannula Nasal Cannula Nasal Cannula O2 Flow Rate 2.0 2.0 2.0 07/20/21 07/20/21 07/20/21 07/20/21 00:25 02:40 06:26 07:00 Temp 98.4 97.6 98.4 97.6 Pulse 79 71 71 78 Resp 16 20 B/P (MAP) 161/60 164/68 (100) 164/68 176/75 (108) Pulse Ox 96 100 O2 Delivery Nasal Cannula Nasal Cannula O2 Flow Rate 2.0 2.0 07/20/21 07/20/21 07/20/21 07/20/21 08:07 08:20 11:11 12:04 Temp 97.8 97.8 Pulse 71 72 72 Resp 20 B/P (MAP) 164/68 193/85 (121) 193/85 Pulse Ox 100 O2 Delivery Nasal Cannula Nasal Cannula O2 Flow Rate 2.0 2.0 Intake and Output 07/19/21 07/19/21 07/20/21 15:00 23:00 07:00 Intake Total 1050 ml 1300 ml 300 ml Output Total 250 ml 200 ml 650 ml Balance 800 ml 1100 ml -350 ml ZURI ASHTON MD Jul 20, 2021 15:34
--- NOTE | 2021-07-20 18:51 | PN ---
DATE: 07/19/2021 SUBJECTIVE: The patient is resting flat in bed, in no apparent distress. She stated that her pain is much less. She had a bowel movement. Denied any nausea or vomiting. Denied any chills, rigors or fever. She went into SVT/atrial fibrillation with rapid ventricular response, treated with digoxin and eventually she required amiodarone drip. She is also on metoprolol 5 mg IV every 6 hours. Unfortunately, she continues to be n.p.o. PHYSICAL EXAMINATION: GENERAL: When I examined her this morning, she was pale, extremely cachectic, but no jaundice, cyanosis or thyromegaly. No jugular venous distention. No lower limb edema. VITAL SIGNS: Her heart rate was 79, blood pressure was 150/66, temperature was 97.8, respiratory rate was 18 and oxygen saturation was 98% on 2 liters of oxygen. HEAD, EYES, EARS, NOSE AND THROAT: Normocephalic, atraumatic. NECK: Supple. HEART: Normal first and second heart sounds, no gallop or murmur. CHEST: Shows central trachea, equally reduced expansion, reduced air entry, vesicular breath sounds. No crepitation or rhonchi. ABDOMEN: Scaphoid, soft, nontender. There is no guarding or rigidity. No organomegaly. All hernial orifice intact. Bowel sounds normal. NEUROLOGIC: She is grossly intact. Her intake and output were incompletely recorded. LABORATORY DATA: Her lab work this morning showed a serum sodium 138, potassium 2.6, chloride 104, bicarbonate 21, anion gap of 13, BUN 15, creatinine 0.6. Estimated GFR was 96 mL per minute. Her glucose was 79, calcium was 6.8, magnesium was 1.8. Total bilirubin, AST, ALT, alkaline phosphatase were normal. Total protein 5.1, albumin was 1.9. Serum triglycerides was 100. Total cholesterol 151, LDL cholesterol 67, VLDL was 20, HDL cholesterol was 64 and the ratio was 2.4. Her TSH was 0.653. Her white cell count was 9800, hemoglobin 12, hematocrit 35, MCV 96 and platelet count 240,000 with normal manual differential. ASSESSMENT: 1. Tachycardia, likely supraventricular versus atrial fibrillation with rapid ventricular response. The patient was treated with IV digoxin, IV metoprolol and she is now on amiodarone drip. She is currently in sinus rhythm. 2. Acute diverticulitis with microperforation. 3. Hyperlipidemia. 4. Chronic obstructive pulmonary disease that is oxygen dependent. 5. 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 6. Hypokalemia with serum potassium 2.6, which she was started on IV fluid in the form of D5 with 40 mEq of potassium chloride. PLAN: To continue with IV amiodarone. Continue with IV antibiotic in the form of piperacillin/tazobactam. Continue with IV fluid. I will repeat her labs this afternoon and decide on further management accordingly. IVONNE/MO DR: Zach TID: [id number]
--- NOTE | 2021-07-20 19:20 | NUR ---
Assessment completed vss poc explained pt denied pain will resume care and continue to monitor pt.Call light in reach.
[2021-07-20 19:26] VITALS: BP 178/86
[2021-07-20] MEDS: SIMVASTATIN 40 MG TABLET. PO SCH (20:43)
[2021-07-20 22:57] VITALS: BP 182/98
[2021-07-21] VITALS (7 sets, daily range): BP systolic 109–196; BP diastolic 52–67
[2021-07-21] MEDS: PIPERACILLIN/TAZOBACTAM 3.375 GM in IV NORMAL SALINE 50ML 50 ML IV SCH ×4 (00:05→17:25)
[2021-07-21] MEDS: METOPROLOL IV PUSH 5 MG/5 ML VIAL. IVP SCH ×3 (00:05→12:10)
[2021-07-21] MEDS: AMIODARONE 450 MG in IV DEXTROSE 5% 250 ML IV PRN (00:58)
[2021-07-21] MEDS: hydrALAZINE 20 MG/ML VIAL. IVP PRN (02:45)
[2021-07-21 05:09] LABS: BASO % 0 % (0-3); EOS # 0.3 x10^3/uL (0.0-0.7); EOS % 3 % (0-3); HEMATOCRIT 37.7 % (36.0-47.0); HEMOGLOBIN 12.8 g/dL (12.0-15.5); LYMPH # 1.2 x10^3/uL (1.0-4.8); LYMPH % 13 % (24-48); MEAN CORPUSCULAR HEMOGLOBIN 33 pg (25-35); MEAN CORPUSCULAR HGB CONC 34 g/dL (31-37); MEAN CORPUSCULAR VOLUME 96 fL (79-100); MONO # 1.1 x10^3/uL (0.0-1.1); MONO % 11 % (0-9); NEUT # 7.1 x10^3/uL (1.8-7.7); NEUT % 73 % (31-73); PLATELET COUNT 304 x10^3/uL (140-400); RED BLOOD COUNT 3.92 x10^6/uL (3.50-5.40); RED CELL DISTRIBUTION WIDTH 13.6 % (11.5-14.5); WHITE BLOOD COUNT 9.7 x10^3/uL (4.0-11.0)
[2021-07-21 07:53] LABS: CALCIUM 8.5 mg/dL (8.5-10.1); CREATININE 0.7 mg/dL (0.6-1.0); GFR 80.7; POTASSIUM 4.9 mmol/L (3.5-5.1)
[2021-07-21] MEDS: LISINOPRIL 10 MG TABLET PO SCH (07:58)
[2021-07-21] MEDS: MULTIVITAMIN with MINERAL TABLET. PO SCH (07:58)
[2021-07-21] MEDS: POTASSIUM CHLORIDE 20 MEQ TABLET.ER. PO SCH ×3 (07:58→20:47)
[2021-07-21] MEDS: CALCIUM CARBONATE 500 MG TABLET PO SCH (07:58)
[2021-07-21] MEDS: ASPIRIN CHEWABLE 81 MG TABLET. PO SCH (07:58)
--- NOTE | 2021-07-21 09:03 | PDOC ---
SURGICAL PROGRESS NOTE DATE: 07/21/21 TIME: 09:02 Subjective tolerating full liquids no n/v having loose stools Vital Signs Vital Signs Date Time Temp Pulse Resp B/P (MAP) Pulse Ox O2 Delivery O2 Flow Rate FiO2 07/21/21 08:00 Nasal Cannula 2.0 07/21/21 07:58 68 148/56 07/21/21 07:07 97.6 18 100 97.6 I&O Intake and Output 07/21/21 07:00 Intake Total 670 ml Output Total 1600 ml Balance -930 ml Intake Oral 670 ml Output Urine Total 1600 ml # Bowel Movements 8 General: Alert, Oriented X3, Cooperative Abdomen: Soft, No tenderness Labs Laboratory Tests Test 07/19/21 16:05 07/20/21 04:00 07/21/21 04:30 Sodium Level 137 mmol/L (136-145) 138 mmol/L (136-145) 138 mmol/L (136-145) Potassium Level 3.3 mmol/L (3.5-5.1) 3.1 mmol/L (3.5-5.1) 4.9 mmol/L (3.5-5.1) Chloride Level 102 mmol/L (98-107) 105 mmol/L (98-107) 104 mmol/L (98-107) Carbon Dioxide Level 26 mmol/L (21-32) 24 mmol/L (21-32) 26 mmol/L (21-32) Anion Gap 9 (6-14) 9 (6-14) 8 (6-14) Blood Urea Nitrogen 8 mg/dL (7-20) 5 mg/dL (7-20) 5 mg/dL (7-20) Creatinine 0.8 mg/dL (0.6-1.0) 0.6 mg/dL (0.6-1.0) 0.7 mg/dL (0.6-1.0) Estimated GFR (Cockcroft-Gault) 69.2 96.4 80.7 Glucose Level 159 mg/dL (70-99) 152 mg/dL (70-99) 87 mg/dL (70-99) Calcium Level 7.4 mg/dL (8.5-10.1) 7.1 mg/dL (8.5-10.1) 8.5 mg/dL (8.5-10.1) White Blood Count 9.7 x10^3/uL (4.0-11.0) Red Blood Count 3.92 x10^6/uL (3.50-5.40) Hemoglobin 12.8 g/dL (12.0-15.5) Hematocrit 37.7 % (36.0-47.0) Mean Corpuscular Volume 96 fL (79-100) Mean Corpuscular Hemoglobin 33 pg (25-35) Mean Corpuscular Hemoglobin Concent 34 g/dL (31-37) Red Cell Distribution Width 13.6 % (11.5-14.5) Platelet Count 304 x10^3/uL (140-400) Neutrophils (%) (Auto) 73 % (31-73) Lymphocytes (%) (Auto) 13 % (24-48) Monocytes (%) (Auto) 11 % (0-9) Eosinophils (%) (Auto) 3 % (0-3) Basophils (%) (Auto) 0 % (0-3) Neutrophils # (Auto) 7.1 x10^3/uL (1.8-7.7) Lymphocytes # (Auto) 1.2 x10^3/uL (1.0-4.8) Monocytes # (Auto) 1.1 x10^3/uL (0.0-1.1) Eosinophils # (Auto) 0.3 x10^3/uL (0.0-0.7) Basophils # (Auto) 0.0 x10^3/uL (0.0-0.2) Laboratory Tests Test 07/21/21 04:30 White Blood Count 9.7 x10^3/uL (4.0-11.0) Red Blood Count 3.92 x10^6/uL (3.50-5.40) Hemoglobin 12.8 g/dL (12.0-15.5) Hematocrit 37.7 % (36.0-47.0) Mean Corpuscular Volume 96 fL (79-100) Mean Corpuscular Hemoglobin 33 pg (25-35) Mean Corpuscular Hemoglobin Concent 34 g/dL (31-37) Red Cell Distribution Width 13.6 % (11.5-14.5) Platelet Count 304 x10^3/uL (140-400) Neutrophils (%) (Auto) 73 % (31-73) Lymphocytes (%) (Auto) 13 % (24-48) Monocytes (%) (Auto) 11 % (0-9) Eosinophils (%) (Auto) 3 % (0-3) Basophils (%) (Auto) 0 % (0-3) Neutrophils # (Auto) 7.1 x10^3/uL (1.8-7.7) Lymphocytes # (Auto) 1.2 x10^3/uL (1.0-4.8) Monocytes # (Auto) 1.1 x10^3/uL (0.0-1.1) Eosinophils # (Auto) 0.3 x10^3/uL (0.0-0.7) Basophils # (Auto) 0.0 x10^3/uL (0.0-0.2) Sodium Level 138 mmol/L (136-145) Potassium Level 4.9 mmol/L (3.5-5.1) Chloride Level 104 mmol/L (98-107) Carbon Dioxide Level 26 mmol/L (21-32) Anion Gap 8 (6-14) Blood Urea Nitrogen 5 mg/dL (7-20) Creatinine 0.7 mg/dL (0.6-1.0) Estimated GFR (Cockcroft-Gault) 80.7 Glucose Level 87 mg/dL (70-99) Calcium Level 8.5 mg/dL (8.5-10.1) Problem List appears clinically improved, will repeat CT Justicifation of Admission Dx: Justifications for Admission: Justification of Admission Dx: Yes KELSEY PEREYRA APRN Jul 21, 2021 09:03
--- NOTE | 2021-07-21 09:10 | PN ---
DATE: 07/21/2021 SUBJECTIVE: The patient is resting, slightly propped up in bed, in no apparent distress. She is tolerating her full liquid diet. She has had no nausea, no vomiting, no abdominal pain. We did replenish her potassium and her potassium is now 4.9. Her white cell count is coming down nicely, today it is 9.7. PHYSICAL EXAMINATION: GENERAL: When I examined her, she looked pale, cachectic, but no jaundice, cyanosis, no lymphadenopathy, no thyromegaly, no jugular venous distention. No limb edema. VITAL SIGNS: Her heart rate was 68 and sinus rhythm. Her blood pressure is 148/56, temperature 97.6, respiratory rate was 18 and oxygen saturation was 100% on 2 liters of oxygen. HEAD, EYES, EARS, NOSE, AND THROAT: Normocephalic, atraumatic. NECK: Supple. HEART: Showed normal first and second heart sounds. No gallop, rub or murmur. CHEST: Clear to auscultation, no crepitation or rhonchi. ABDOMEN: Distended, soft, nontender, no guarding or rigidity. No organomegaly. All hernial orifice intact. Bowel sounds normal. NEUROLOGIC: She was grossly intact. Her intake was 2650, output was 1100. LABORATORY DATA: As of this morning, her white cell count was 9700, hemoglobin 13, hematocrit 38, MCV 96 and platelet count 304,000. Her chemistry showed a serum sodium 138, potassium 4.9, chloride 104, bicarbonate 26, anion gap of 8, BUN 5, creatinine 0.7. Estimated GFR was 80 mL per minute. Her glucose was 87 and calcium was 8.5. ASSESSMENT: 1. Tachycardia, likely supraventricular versus atrial fibrillation with rapid ventricular response. The patient was treated with IV digoxin and IV metoprolol and she is now on amiodarone. She is actually in sinus rhythm. 2. Acute diverticulitis with microperforation, resolving. She is afebrile. Her white cell count is down and she is tolerating her full liquid diet. 3. Hyperlipidemia. 4. Chronic obstructive pulmonary disease that is oxygen dependent. 5. 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 6. Hypokalemia that has finally resolved. Serum potassium this morning is 4.9. PLAN: Plan is obviously to continue, advance diet as tolerated. Continue with IV antibiotic in the form of piperacillin/tazobactam. Hopefully, if she is on a regular diet and tolerating it, can probably discharge her home tomorrow on oral antibiotic. I will cut down on her potassium, she was on 40 mEq 3 times a day. ALISON DR: Zach TID: [id number]
--- NOTE | 2021-07-21 09:27 | NUR ---
MEDICATION 40MEQ DOSE OF KCL GIVEN THIS AM PRIOR TO ORDER CHANGE. WILL RESTART 20MEQ KCL DOSING AFTER AM DOSE, NON ADMIN 0900 DOSE ALREADY GIVEN.
--- NOTE | 2021-07-21 14:23 | PDOC ---
PROGRESS NOTES Date of Service: DATE: 07/21/21 TIME: 14:23 Subjective Subjective Tolerating full liquid diet. Denies any chest pain or shortness of breath. Objective Objective Vital Signs Date Time Temp Pulse Resp B/P (MAP) Pulse Ox O2 Delivery O2 Flow Rate FiO2 07/21/21 12:10 97 109/52 07/21/21 10:01 97.7 18 100 Nasal Cannula 2.0 97.7 Intake and Output 07/21/21 07:00 Intake Total 670 ml Output Total 1600 ml Balance -930 ml Intake Oral 670 ml Output Urine Total 1600 ml # Bowel Movements 8 Physical Exam Abdomen: Soft, No tenderness Heart: Other (SVT rate 180) Extremities: No edema General: Alert, Oriented X3, Cooperative HEENT: Other (SOA) Lungs: Clear to auscultation MUSCULOSKELETAL: Osteoarthritic changes both hands Neuro: Normal speech, Sensation intact Psych/Mental Status: Mental status NL, Mood NL Skin: No significant lesion Assessment Assessment 1. Abdominal pain; CT abdomen pelvis notable for diverticulitis with micro perforation. GS following 2. PSVT; new finding in setting of above. Maintaining SR 3. Hypertension; controlled 4. Hyperlipidemia 5. Chronic respiratory failure with underlying COPD; O2 dependent 6. Chronic constipation with h/o bowel obstruction 7. Leukocytosis, lactic acidosis 8. CAD; coronary calcifications noted on CT 9. PAD; extensive diffuse plaquing noted with narrowing of the abdominal aorta up to approximately 50%. Severe stenosis at the celiac, right renal artery and ERIKA origins, and long segment severe stenoses of both common iliac arteries. Recommendations Change amiodarone to p.o. Outpt ischemic w/u and PAD w/u as well Secondary prevention as able. Outpatient echo and ischemic evaluation given risk factors Follow GS recs Comment Review of Relevant I have reviewed the following items autumn (where applicable) has been applied. Labs Laboratory Tests Test 07/21/21 04:30 White Blood Count 9.7 x10^3/uL (4.0-11.0) Red Blood Count 3.92 x10^6/uL (3.50-5.40) Hemoglobin 12.8 g/dL (12.0-15.5) Hematocrit 37.7 % (36.0-47.0) Mean Corpuscular Volume 96 fL (79-100) Mean Corpuscular Hemoglobin 33 pg (25-35) Mean Corpuscular Hemoglobin Concent 34 g/dL (31-37) Red Cell Distribution Width 13.6 % (11.5-14.5) Platelet Count 304 x10^3/uL (140-400) Neutrophils (%) (Auto) 73 % (31-73) Lymphocytes (%) (Auto) 13 % (24-48) Monocytes (%) (Auto) 11 % (0-9) Eosinophils (%) (Auto) 3 % (0-3) Basophils (%) (Auto) 0 % (0-3) Neutrophils # (Auto) 7.1 x10^3/uL (1.8-7.7) Lymphocytes # (Auto) 1.2 x10^3/uL (1.0-4.8) Monocytes # (Auto) 1.1 x10^3/uL (0.0-1.1) Eosinophils # (Auto) 0.3 x10^3/uL (0.0-0.7) Basophils # (Auto) 0.0 x10^3/uL (0.0-0.2) Sodium Level 138 mmol/L (136-145) Potassium Level 4.9 mmol/L (3.5-5.1) Chloride Level 104 mmol/L (98-107) Carbon Dioxide Level 26 mmol/L (21-32) Anion Gap 8 (6-14) Blood Urea Nitrogen 5 mg/dL (7-20) Creatinine 0.7 mg/dL (0.6-1.0) Estimated GFR (Cockcroft-Gault) 80.7 Glucose Level 87 mg/dL (70-99) Calcium Level 8.5 mg/dL (8.5-10.1) Microbiology 07/16/21 Blood Culture - Final, Complete NO GROWTH AFTER 5 DAYS Medications Current Medications Lactobacillus Rhamnosus (Culturelle) 1 cap BID PO ; Start 07/21/21 at 21:00 Potassium Chloride (Klor-Con) 20 meq BID PO ; Start 07/21/21 at 09:00 Vitals/I & O Vital Sign - Last 24 Hours 07/20/21 07/20/21 07/20/21 07/20/21 15:00 18:00 19:20 19:26 Temp 97.5 98.0 97.5 98.0 Pulse 104 72 79 Resp 22 16 B/P (MAP) 221/96 (137) 193/85 178/86 (116) Pulse Ox 97 99 O2 Delivery Nasal Cannula Nasal Cannula Nasal Cannula O2 Flow Rate 2.0 2.0 2.0 07/20/21 07/21/21 07/21/21 07/21/21 22:57 00:05 02:35 02:40 Temp 97.2 97.4 97.2 97.4 Pulse 82 82 74 78 Resp 16 18 B/P (MAP) 182/98 (126) 182/98 194/63 (106) 186/67 (106) Pulse Ox 99 98 O2 Delivery Nasal Cannula Nasal Cannula O2 Flow Rate 2.0 2.0 07/21/21 07/21/21 07/21/21 07/21/21 02:45 06:14 07:07 07:58 Temp 97.6 97.6 Pulse 78 92 68 68 Resp 18 B/P (MAP) 186/67 148/56 148/56 (86) 148/56 Pulse Ox 100 O2 Delivery Nasal Cannula O2 Flow Rate 2.0 07/21/21 07/21/21 07/21/21 08:00 10:01 12:10 Temp 97.7 97.7 Pulse 97 97 Resp 18 B/P (MAP) 109/52 (71) 109/52 Pulse Ox 100 O2 Delivery Nasal Cannula Nasal Cannula O2 Flow Rate 2.0 2.0 Intake and Output 07/20/21 07/20/21 07/21/21 15:00 23:00 07:00 Intake Total 490 ml 180 ml 0 ml Output Total 800 ml 600 ml 200 ml Balance -310 ml -420 ml -200 ml ZURI ASHTON MD Jul 21, 2021 14:23
[2021-07-21] MEDS: METOPROLOL SUCC 24HR ER 50 MG TAB.ER.24H. PO SCH (16:43)
[2021-07-21] MEDS: AMIODARONE HCL 200 MG TABLET. PO SCH (16:44)
[2021-07-21] MEDS: SIMVASTATIN 40 MG TABLET. PO SCH (20:46)
[2021-07-21] MEDS: LACTOBACILLUS RHAMNOSUS GG 1 CAPSULE. PO SCH (20:46)
[2021-07-22 02:56] VITALS: BP 139/59
[2021-07-22] MEDS: PIPERACILLIN/TAZOBACTAM 3.375 GM in IV NORMAL SALINE 50ML 50 ML IV SCH ×4 (06:15→17:57)
[2021-07-22 06:26] VITALS: BP 140/70
[2021-07-22] MEDS: POTASSIUM CHLORIDE 20 MEQ TABLET.ER. PO SCH ×2 (08:01→20:56)
[2021-07-22] MEDS: ASPIRIN CHEWABLE 81 MG TABLET. PO SCH (08:02)
[2021-07-22] MEDS: METOPROLOL SUCC 24HR ER 50 MG TAB.ER.24H. PO SCH (08:02)
[2021-07-22] MEDS: CALCIUM CARBONATE 500 MG TABLET PO SCH (08:02)
[2021-07-22] MEDS: MULTIVITAMIN with MINERAL TABLET. PO SCH (08:02)
[2021-07-22] MEDS: LACTOBACILLUS RHAMNOSUS GG 1 CAPSULE. PO SCH ×2 (08:03→20:55)
[2021-07-22] MEDS: LISINOPRIL 10 MG TABLET PO SCH (08:03)
[2021-07-22] MEDS: AMIODARONE HCL 200 MG TABLET. PO SCH (08:04)
--- NOTE | 2021-07-22 10:11 | PN ---
DATE: 07/22/2021 SUBJECTIVE: The patient is resting slightly propped up in bed, in no apparent respiratory distress. On questioning her, she denied any complaint, in particular, denied any nausea or vomiting. Denied any abdominal pain. Denied any chills, rigors or fever. She is tolerating full liquid diet. She is apparently scheduled for a CT scan of the abdomen and pelvis with oral and IV contrast. PHYSICAL EXAMINATION: GENERAL: When I examined her, she was pale, cachectic, but no jaundice, cyanosis or thyromegaly. No jugular venous distention. No limb edema. VITAL SIGNS: Her heart rate was 78, blood pressure 140/70, temperature was 97.9, respiratory rate was 16 and oxygen saturation was 100% on 2 liters of oxygen. Rest of the exam stable. ABDOMEN: Particularly, the abdomen is soft, nontender. No guarding, no rigidity, no organomegaly. All hernial orifice intact. Bowel sounds normal. LABORATORY DATA: Her intake over the last 24 hours was 670, output was 1600. ASSESSMENT: 1. Tachycardia, likely supraventricular versus atrial fibrillation with rapid ventricular response. The patient was treated with IV digoxin and IV metoprolol and she is on amiodarone. She is actually in sinus rhythm. 2. Acute diverticulitis with microperforation, resolving. She is afebrile. Her white cell count is down. She is tolerating her full liquid diet. 3. Hyperlipidemia. 4. Chronic obstructive pulmonary disease that is oxygen dependent. 5. 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 6. Hypokalemia that has finally resolved. Her most recent serum potassium is up to 4.9. PLAN: To obviously continue and advance diet as tolerated. Continue with IV antibiotic. Await the outcome of the CT scan of the abdomen and pelvis with oral and IV contrast. PAOLO DR: Zach TID: [id number]
[2021-07-22 10:23] VITALS: BP 112/52
--- NOTE | 2021-07-22 11:25 | PDOC ---
CELESTINE JOE ASH [employer] WORKER 07/22/21 1125: CARDIO Progress Notes Date and Time Date of Service 07/22/21 Time of Evaluation 1120 Subjective Subjective: No Chest Pain, No shortness of breath, No Palpitations Vitals Vitals Vital Signs Date Time Temp Pulse Resp B/P (MAP) Pulse Ox O2 Delivery O2 Flow Rate FiO2 07/22/21 10:23 98.3 75 16 112/52 (72) 100 Nasal Cannula 3.0 98.3 Weight Weight [ ] Input and Output Intake and Output Intake and Output 07/22/21 07:00 Intake Total 480 ml Output Total 1850 ml Balance -1370 ml Intake Oral 480 ml Output Urine Total 1850 ml # Voids 3 # Bowel Movements 1 Microbiology Micro Microbiology 07/16/21 Blood Culture - Final, Complete NO GROWTH AFTER 5 DAYS Physical Exam HEENT: Neck Supple W Full Motion Chest: Symmetric LUNGS: Other (diminished ) Heart: RRR (SR) Abdomen: Soft N/T Extremities: No Calf Tenderness Neurology: alert, oriented, follow commands Assessment Assessment 1. Abdominal pain; CT abdomen pelvis notable for diverticulitis with microperforation. GS following 2. PSVT; new finding in setting of above. Maintaining SR 3. Hypertension; controlled 4. Hyperlipidemia 5. Chronic respiratory failure with underlying COPD; O2 dependent 6. Chronic constipation with h/o bowel obstruction 7. Leukocytosis, lactic acidosis 8. CAD; coronary calcifications noted on CT 9. PAD; extensive diffuse plaquing noted with narrowing of the abdominal aorta up to approximately 50%. Severe stenosis at the celiac, right renal artery and ERIKA origins, and long segment severe stenoses of both common iliac arteries. Recommendations Amiodarone for rhythm maintenance Outpatient event monitor arranged Outpt ischemic w/u and PAD w/u as well. Stress test, echo, and follow up in our office with Dr. Zuñiga has been arranged Secondary prevention Justicifation of Admission Dx: Justifications for Admission: Justification of Admission Dx: Yes BAIRON ZUÑIGA MD 07/22/21 1616: CARDIO Progress Notes Assessment Assessment Patient seen and examined I agree with our nurse practitioners assessment and plan. Assessment Abdominal pain; CT abdomen pelvis notable for diverticulitis with microperforation. Surgery following PSVT; new finding in setting of above. Maintaining SR. on amiodarone. Hypertension; controlled Hyperlipidemia Chronic respiratory failure with underlying COPD; O2 dependent Chronic constipation with h/o bowel obstruction Leukocytosis, lactic acidosis CAD; coronary calcifications noted on CT . Continue present medical treatment. Outpatient work-up. PAD; extensive diffuse plaquing noted with narrowing of the abdominal aorta up to approximately 50%. Severe stenosis at the celiac, right renal artery and ERIKA origins, and long segment severe stenoses of both common iliac arteries. Continuing medical treatment. Outpatient work-up. CELESTINE JOE APRN Jul 22, 2021 11:25 BAIRON ZUÑIGA MD Jul 22, 2021 16:16
--- NOTE | 2021-07-22 12:31 | PDOC ---
SURGICAL PROGRESS NOTE DATE: 07/22/21 TIME: 12:30 Subjective no complaints awaiting CT Vital Signs Vital Signs Date Time Temp Pulse Resp B/P (MAP) Pulse Ox O2 Delivery O2 Flow Rate FiO2 07/22/21 10:23 98.3 75 16 112/52 (72) 100 Nasal Cannula 3.0 98.3 I&O Intake and Output 07/22/21 07:00 Intake Total 480 ml Output Total 1850 ml Balance -1370 ml Intake Oral 480 ml Output Urine Total 1850 ml # Voids 3 # Bowel Movements 1 General: Alert, Oriented X3, Cooperative Abdomen: Soft, No tenderness Labs Laboratory Tests Test 07/21/21 04:30 White Blood Count 9.7 x10^3/uL (4.0-11.0) Red Blood Count 3.92 x10^6/uL (3.50-5.40) Hemoglobin 12.8 g/dL (12.0-15.5) Hematocrit 37.7 % (36.0-47.0) Mean Corpuscular Volume 96 fL (79-100) Mean Corpuscular Hemoglobin 33 pg (25-35) Mean Corpuscular Hemoglobin Concent 34 g/dL (31-37) Red Cell Distribution Width 13.6 % (11.5-14.5) Platelet Count 304 x10^3/uL (140-400) Neutrophils (%) (Auto) 73 % (31-73) Lymphocytes (%) (Auto) 13 % (24-48) Monocytes (%) (Auto) 11 % (0-9) Eosinophils (%) (Auto) 3 % (0-3) Basophils (%) (Auto) 0 % (0-3) Neutrophils # (Auto) 7.1 x10^3/uL (1.8-7.7) Lymphocytes # (Auto) 1.2 x10^3/uL (1.0-4.8) Monocytes # (Auto) 1.1 x10^3/uL (0.0-1.1) Eosinophils # (Auto) 0.3 x10^3/uL (0.0-0.7) Basophils # (Auto) 0.0 x10^3/uL (0.0-0.2) Sodium Level 138 mmol/L (136-145) Potassium Level 4.9 mmol/L (3.5-5.1) Chloride Level 104 mmol/L (98-107) Carbon Dioxide Level 26 mmol/L (21-32) Anion Gap 8 (6-14) Blood Urea Nitrogen 5 mg/dL (7-20) Creatinine 0.7 mg/dL (0.6-1.0) Estimated GFR (Cockcroft-Gault) 80.7 Glucose Level 87 mg/dL (70-99) Calcium Level 8.5 mg/dL (8.5-10.1) Problem List CT pending DC planning CT reviewed, overall improving findings, would continue abx as outpt, GI FU for colonoscopy once resolved no surgical plans Justicifation of Admission Dx: Justifications for Admission: Justification of Admission Dx: Yes KELSEY PEREYRA SECONDARY TEACHER Jul 22, 2021 12:31
[2021-07-22] MEDS ORDERED: IOHEXOL 300 MG/ML 100ML VIAL. IV ONE (12:45)
[2021-07-22] MEDS ORDERED: IOHEXOL 240 MG/ML 50ML VIAL. PO ONE (12:45)
[2021-07-22] MEDS ORDERED: CONTRAST GIVEN. MC PRN (13:00)
--- NOTE | 2021-07-22 14:40 | RAD ---
EXAM: CT Abdomen and Pelvis with IV contrast CLINICAL HISTORY: Reason: diverticulitis / Spl. Instructions: IV omni 300 75 mls and PO omni 240 50 m ls / History: . COMPARISON: 07/25/2021 TECHNIQUE: Helical CT of the abdomen and pelvis was performed following the administration of intrave nous contrast. Oral contrast was administered Axial, coronal and sagittal reformatted images were gen erated. PQRS compliance statement - One or more of the following individualized dose reduction techniques wer e utilized for this study: 1. Automated exposure control 2. Adjustment of the mA and/or kV according to patient size 3. Use of iterative reconstruction technique FINDINGS: Lower Chest: Exam is accredited by respiratory motion. There is severe emphysematous changes. No focal consolidati on. Abdomen and Pelvis: Liver is normal in size and attenuation. Normal gallbladder is present. No significant biliary duct d ilation. Hypertrophic morphology of the adrenal glands, unchanged from priors. The spleen and pancrea s are unremarkable. Similar atrophic appearance of the right kidney. Left kidney is normal. No nephro lithiasis or hydroureteronephrosis. Oral contrast is seen throughout the small and large bowel to the level of the rectum. No abnormal sm all bowel wall thickening. Sigmoid diverticulosis with mild circumferential wall thickening, mildly d ecreased from prior. The multiloculated collection with decreased interspersed areas of gas adjacent to the sigmoid colon demonstrates minimal/mild decrease in size, measuring 5.4 x 1.7 x 4.3 cm. There is no contrast seen within this multiloculated collection to suggest intraluminal communication. Ther e is also decreased inflammatory changes around the sigmoid colon/left hemipelvis. Areas of pneumoper itoneum previously identified around the liver have resolved. There is no significant free intra-abdo jannet air or new abdominal or pelvic collections. Similar appearance of the uterus. Bladder is unremarkable. Redemonstrated severe atherosclerotic disease of the thoracic aorta and major branching vessels. Osteopenia. No acute osseous process. IMPRESSION: 1.Findings of subacute sigmoid diverticulitis with decreasing inflammatory changes with minimal/mild decrease in size of multiloculated collection adjacent to the sigmoid colon. No findings to suggest a ctive colonic perforation. Recommend continued imaging follow-up to resolution. Upon resolution of in flammatory changes colonoscopy is recommended if not already performed to exclude underlying malignan cy. 2. Other chronic/incidental findings are unchanged. Electronically signed by: Isauro Sanders DO (07/22/2021 2:37 PM) [facility]
[2021-07-22 14:52] VITALS: BP 169/71
--- NOTE | 2021-07-22 15:07 | NUR ---
SS following up with discharge planning. SS reviewed pt chart and discussed with pt RN. Pt is currently requiring oxygen at three liters nasal canula. Pt has home oxygen. Pt on IV Zosyn. Full liquid diet. Cardiology and Surgery following. CT of abdomen today. No surgical plans at this time. SS will continue to follow for discharge planning.
[2021-07-22 19:33] VITALS: BP 210/80
[2021-07-22] MEDS: SIMVASTATIN 40 MG TABLET. PO SCH (20:56)
[2021-07-22 22:55] VITALS: BP 165/72
[2021-07-23] MEDS: PIPERACILLIN/TAZOBACTAM 3.375 GM in IV NORMAL SALINE 50ML 50 ML IV SCH ×4 (00:51→16:52)
[2021-07-23 02:58] VITALS: BP 140/52
[2021-07-23 06:10] LABS: HEMATOCRIT 36.2 % (36.0-47.0); HEMOGLOBIN 12.6 g/dL (12.0-15.5); RED BLOOD COUNT 3.77 x10^6/uL (3.50-5.40); RED CELL DISTRIBUTION WIDTH 13.5 % (11.5-14.5); WHITE BLOOD COUNT 10.5 x10^3/uL (4.0-11.0)
[2021-07-23 06:34] LABS: ALBUMIN 2.5 g/dL (3.4-5.0); ALBUMIN/GLOBULIN RATIO 0.7 (1.0-1.7); CALCIUM 8.9 mg/dL (8.5-10.1); CREATININE 0.8 mg/dL (0.6-1.0); GFR 69.2; POTASSIUM 4.2 mmol/L (3.5-5.1); TOTAL BILIRUBIN 0.3 mg/dL (0.2-1.0); TOTAL PROTEIN 6.2 g/dL (6.4-8.2)
[2021-07-23 07:00] VITALS: BP 132/62
[2021-07-23] MEDS: ASPIRIN CHEWABLE 81 MG TABLET. PO SCH (08:20)
[2021-07-23] MEDS: LACTOBACILLUS RHAMNOSUS GG 1 CAPSULE. PO SCH ×2 (08:21→19:50)
[2021-07-23] MEDS: AMIODARONE HCL 200 MG TABLET. PO SCH (08:21)
[2021-07-23] MEDS: CALCIUM CARBONATE 500 MG TABLET PO SCH (08:21)
[2021-07-23] MEDS: METOPROLOL SUCC 24HR ER 50 MG TAB.ER.24H. PO SCH (08:21)
[2021-07-23] MEDS: MULTIVITAMIN with MINERAL TABLET. PO SCH (08:21)
[2021-07-23] MEDS: LISINOPRIL 10 MG TABLET PO SCH (08:22)
--- NOTE | 2021-07-23 08:22 | PDOC ---
CELESTINE JOE CONTINUOUS MINING OPERATOR 07/23/21 0822: CARDIO Progress Notes Date and Time Date of Service 07/23/21 Time of Evaluation 1020 Subjective Subjective: No Chest Pain, No shortness of breath, No Palpitations Vitals Vitals Vital Signs Date Time Temp Pulse Resp B/P (MAP) Pulse Ox O2 Delivery O2 Flow Rate FiO2 07/23/21 07:00 97.8 78 18 132/62 (85) 95 Nasal Cannula 3.0 97.8 Weight Weight [ ] Input and Output Intake and Output Intake and Output 07/23/21 07:00 Intake Total 860 ml Output Total 1290 ml Balance -430 ml Intake Oral 860 ml Output Urine Total 1290 ml # Voids 2 # Bowel Movements 9 Laboratory Labs Laboratory Tests Test 07/23/21 04:50 White Blood Count 10.5 x10^3/uL (4.0-11.0) Red Blood Count 3.77 x10^6/uL (3.50-5.40) Hemoglobin 12.6 g/dL (12.0-15.5) Hematocrit 36.2 % (36.0-47.0) Mean Corpuscular Volume 96 fL (79-100) Mean Corpuscular Hemoglobin 33 pg (25-35) Mean Corpuscular Hemoglobin Concent 35 g/dL (31-37) Red Cell Distribution Width 13.5 % (11.5-14.5) Platelet Count 331 x10^3/uL (140-400) Sodium Level 137 mmol/L (136-145) Potassium Level 4.2 mmol/L (3.5-5.1) Chloride Level 97 mmol/L (98-107) Carbon Dioxide Level 31 mmol/L (21-32) Anion Gap 9 (6-14) Blood Urea Nitrogen 6 mg/dL (7-20) Creatinine 0.8 mg/dL (0.6-1.0) Estimated GFR (Cockcroft-Gault) 69.2 BUN/Creatinine Ratio 8 (6-20) Glucose Level 91 mg/dL (70-99) Calcium Level 8.9 mg/dL (8.5-10.1) Total Bilirubin 0.3 mg/dL (0.2-1.0) Aspartate Amino Transf (AST/SGOT) 18 U/L (15-37) Alanine Aminotransferase (ALT/SGPT) 23 U/L (14-59) Alkaline Phosphatase 72 U/L (46-116) Total Protein 6.2 g/dL (6.4-8.2) Albumin 2.5 g/dL (3.4-5.0) Albumin/Globulin Ratio 0.7 (1.0-1.7) Microbiology Micro Microbiology 07/16/21 Blood Culture - Final, Complete NO GROWTH AFTER 5 DAYS Physical Exam HEENT: Neck Supple W Full Motion Chest: Symmetric LUNGS: Other (diminished ) Heart: RRR (SR) Abdomen: Soft N/T Extremities: No Calf Tenderness Neurology: alert, oriented, follow commands Assessment Assessment 1. Abdominal pain; CT abdomen pelvis notable for diverticulitis with microper foration. GS following 2. PSVT; new finding in setting of above. Maintaining SR 3. Hypertension; controlled 4. Hyperlipidemia 5. Chronic respiratory failure with underlying COPD; O2 dependent 6. Chronic constipation with h/o bowel obstruction 7. Leukocytosis, lactic acidosis 8. CAD; coronary calcifications noted on CT 9. PAD; extensive diffuse plaquing noted with narrowing of the abdominal aorta up to approximately 50%. Severe stenosis at the celiac, right renal artery and ERIKA origins, and long segment severe stenoses of both common iliac arteries. Recommendations Metoprolol for rate control Amiodarone for rhythm maintenance Outpatient event monitor as arranged Outpt ischemic w/u and PAD w/u as well. Stress test, echo, and follow up in our office with Dr. Zuñiga has been scheduled Secondary prevention Justicifation of Admission Dx: Justifications for Admission: Justification of Admission Dx: Yes BAIRON ZUÑIGA MD 07/23/21 1632: CARDIO Progress Notes Assessment Assessment Patient seen and examined I agree with our nurse practitioners assessment and plan. Abdominal pain; CT abdomen pelvis notable for diverticulitis with microperforation. GS following. Feeling mildly better. PSVT; new finding in setting of above. Maintaining SR. On metoprolol for rate control and amiodarone for rhythm. Outpatient monitor and follow-up. Hypertension; controlled Hyperlipidemia Chronic respiratory failure with underlying COPD; O2 dependent Chronic constipation with h/o bowel obstruction CAD; coronary calcifications noted on CT PAD; extensive diffuse plaquing noted with narrowing of the abdominal aorta up to approximately 50%. Severe stenosis at the celiac, right renal artery and ERIKA origins, and long segment severe stenoses of both common iliac arteries. Continue medical treatment. Outpatient follow-up. CELESTINE JOE APRN Jul 23, 2021 08:22 BAIRON ZUÑIGA MD Jul 23, 2021 16:32
[2021-07-23] MEDS: POTASSIUM CHLORIDE 20 MEQ TABLET.ER. PO SCH ×2 (08:23→19:50)
--- NOTE | 2021-07-23 09:26 | PN ---
DATE: 07/23/2021 SUBJECTIVE: The patient is resting flat in bed, in no apparent respiratory distress. She denied any abdominal pain. Denied nausea or vomiting. She continued to have loose bowel movement. She did have a CT scan of the abdomen and pelvis with IV and oral contrast, which basically showed that the patient has finding of subacute sigmoid diverticulitis and decreasing inflammatory changes minimal, mild decrease in the size of multiloculated collection adjacent to the sigmoid colon, no findings to suggest active colonic perforation. Recommend continued imaging followup to resolution. Upon resolution of inflammatory changes, colonoscopy is recommended, if not already performed to exclude underlying malignancy. The surgical team are not planning any surgical intervention and recommended to continue antibiotic as an outpatient. I did consult the Infectious Disease regarding what kind of antibiotic and for how long, whether it is oral or IV and GI will be consulted also for arrangement for outpatient colonoscopy. PHYSICAL EXAMINATION: GENERAL: When I saw her this morning, she looked well and was clearly in no apparent respiratory distress. She was pale, not jaundiced or cyanosed. No thyromegaly. No jugular venous distention. No limb edema. VITAL SIGNS: Her heart rate was 78, blood pressure was 132/62, temperature 97.8, respiratory rate was 18 and oxygen saturation was 95% on 3 liters of oxygen by nasal cannula. Rest of clinical exam is stable. LABORATORY DATA: This morning showed a serum sodium 137, potassium 4.2, chloride 97, bicarbonate 31, anion gap of 9, BUN 6, creatinine 0.8. Estimated GFR was 69 mL per minute. Her glucose was 91, calcium was 8.9. Total bilirubin, AST, ALT, alkaline phosphatase were normal. Total protein 6.2, albumin 2.5. ASSESSMENT: 1. Tachycardia, likely paroxysmal supraventricular tachycardia versus atrial fibrillation with rapid ventricular response. The patient received IV digoxin, IV metoprolol and amiodarone. She is actually in sinus rhythm. 2. Acute diverticulitis with microperforation, resolving. She is afebrile. Her white cell count is normal. She is tolerating her full liquid diet. 3. Hyperlipidemia. 4. Chronic obstructive pulmonary disease. 5. Chronic hypoxic respiratory failure, on 3 liters of oxygen. 6. 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 7. Hypokalemia has finally resolved. Her most recent serum potassium is 4.8. PLAN: Obviously to await the evaluation by the Infectious Disease. She will be discharged home. I have also consulted the Gastroenterology team for arrangement for outpatient colonoscopy. GERARDO DR: Zach TID: [id number]
[2021-07-23 10:58] VITALS: BP 159/53
--- NOTE | 2021-07-23 11:59 | PDOC2 ---
GI CONSULT Date of Service: DATE: 07/23/21 TIME: 11:25 Reason For Consult: diverticulitis ?? underlying malignancy HPI: HPI: 81 y/o female transferred to [facility] from [facility] on 07/15/21. CT A/P there showed scattered free gas throughout the abdomen and pelvis appearing to originate from sigmoid colonic perforation, moderate constipation, severe emphysema, and severe PAD. Followed by surgery for suspected diverticulitis w/ microperf, symptoms improved w/ IV atbx, and now tolerating full liquid diet. She hopes to go home soon. Interval CT report from yesterday shows decreasing inflammatory changes and mild decrease in size of multiloculated collection adjacent to the sigmoid colon. GI, ID, and IR asked to comment today. She reports a lot of diarrhea since yesterday - "like a goose!" D/w nurse - ?r elated to contrast - was dark green, slowing now. She denies reflux/heartburn, dysphagia, n/v, abdominal pain, constipation, hem atochezia, or melena. Describes ongoing weight loss for some time - "every time I went to the doctor." I asked about appetite; she says "well I eat." Also reports was seen at the [facility] ~6 months ago "for a bowel blockage." She says she was not admitted to the hospital but was discharged from the ER with Miralax. I asked if she was constipated and she said "well not really" and also reports no issues w/ constipation or other GI problems from that time until this episode. No previous EGD. Reports previous colonoscopy performed by her PCP "at a place that wasn't the regular office" in [place], [place] ~5 years ago w/ polyps. (She has since moved to [place].) Denies GB, liver, pancreas, or PUD history. On ASA and amiodarone. PMH: PMH: CAD, PAD (50% narrowing in abd aorta, also severe in celiac, inferior mesenteric, right renal, also bilateral common iliac arteries), HTN, HLD, COPD, PSVT, bilateral carotid artery stenosis, osteopenia bilateral cataract extraction, ?retinal detachment FH: Family History: No pertinent hx (denies GI cancers) Social History: Smoke: Quit ALCOHOL: none Drugs: None ROS: GEN: Denies fevers, chills, sweats HEENT: Denies blurred vision, sore throat CV: Denies chest pain RESP: +SOA +cough GI: Per HPI : Denies hematuria, dysuria ENDO: +weight loss NEURO: Denies confusion, dizziness MSK: Denies weakness, joint pain/swelling SKIN: Denies jaundice, pruritus Vitals: Vitals: Vital Signs Date Time Temp Pulse Resp B/P (MAP) Pulse Ox O2 Delivery O2 Flow Rate FiO2 07/23/21 10:58 98.0 77 18 159/53 (88) 100 Nasal Cannula 2.0 98.0 Labs: Labs: Laboratory Tests Test 07/23/21 04:50 White Blood Count 10.5 x10^3/uL (4.0-11.0) Red Blood Count 3.77 x10^6/uL (3.50-5.40) Hemoglobin 12.6 g/dL (12.0-15.5) Hematocrit 36.2 % (36.0-47.0) Mean Corpuscular Volume 96 fL (79-100) Mean Corpuscular Hemoglobin 33 pg (25-35) Mean Corpuscular Hemoglobin Concent 35 g/dL (31-37) Red Cell Distribution Width 13.5 % (11.5-14.5) Platelet Count 331 x10^3/uL (140-400) Sodium Level 137 mmol/L (136-145) Potassium Level 4.2 mmol/L (3.5-5.1) Chloride Level 97 mmol/L (98-107) Carbon Dioxide Level 31 mmol/L (21-32) Anion Gap 9 (6-14) Blood Urea Nitrogen 6 mg/dL (7-20) Creatinine 0.8 mg/dL (0.6-1.0) Estimated GFR (Cockcroft-Gault) 69.2 BUN/Creatinine Ratio 8 (6-20) Glucose Level 91 mg/dL (70-99) Calcium Level 8.9 mg/dL (8.5-10.1) Total Bilirubin 0.3 mg/dL (0.2-1.0) Aspartate Amino Transf (AST/SGOT) 18 U/L (15-37) Alanine Aminotransferase (ALT/SGPT) 23 U/L (14-59) Alkaline Phosphatase 72 U/L (46-116) Total Protein 6.2 g/dL (6.4-8.2) Albumin 2.5 g/dL (3.4-5.0) Albumin/Globulin Ratio 0.7 (1.0-1.7) BLOOD CULTURE Final NO GROWTH AFTER 5 DAYS Allergies: Coded Allergies: No Known Drug Allergies (Unverified , 07/19/21) Medications: Current Medications Medications (Trade) Dose Ordered Sig/Shelby Route PRN Reason Start Time Stop Time Status Last Admin Dose Admin Iohexol (Omnipaque 240 Mg/ml) 30 ml 1X ONCE PO 07/22/21 12:45 07/22/21 12:47 DC 07/22/21 13:40 Iohexol (Omnipaque 300 Mg/ml) 75 ml 1X ONCE IV 07/22/21 12:45 07/22/21 12:47 DC 07/22/21 13:40 Imaging: Imaging: CT A/P from [facility] (?on 07/15?) 1. No pulmonary embolism or aortic dissection. 2. Extremely severe calcified and noncalcified atheromatous plaque burden throughout the aorta, aortic branch vessels and coronary arteries. Luminal narrowing of the abdominal aorta up to approximately 50%. Severe stenosis at the celiac, right renal artery and ERIKA origins. Long segment severe stenoses of both common iliac arteries and multifocal less pronounced stenoses at additional locations as described in the body of the report. 3. Scattered free gas throughout the abdomen and pelvis. This appears to be originating from sigmoid colonic perforation which may be secondary to perforated diverticulitis with an ischemic etiology not able to be excluded. No portal or gastroepiploic venous gas to help confirm the latter. Portions of the sigmoid colon wall are difficult to delineate and there may be a poorly marginated gas/fluid collection at the left hemipelvis, such as in the region of image 94 series 8. No findings to indicate that perforation arises from the stomach or small bowel. 4. Additional chronic observations to include severe emphysema. Moderate degree of constipation. CT A/P 07/22/21 IMPRESSION: 1.Findings of subacute sigmoid diverticulitis with decreasing inflammatory changes with minimal/mild decrease in size of multiloculated collection adjacent to the sigmoid colon. No findings to suggest active colonic perforation. Recommend continued imaging follow-up to resolution. Upon resolution of inflammatory changes colonoscopy is recommended if not already performed to exclude underlying malignancy. 2. Other chronic/incidental findings are unchanged. PE: GEN: NAD, cachectic HEENT: edentulous LUNGS: diminished, loose cough, NC 2L HEART: RRR ABD: quiet BS, S/ND/NT EXTREMITY: No edema SKIN: No rashes, no jaundice NEURO/PSYCH: A & O 3, [place] A/P: A/P: Suspected diverticulitis w/ microperf - interval CT as above CRC screen, h/o polyps - reports previous colonoscopy ~5 years ago H/o constipation, currently having loose stools Weight loss COPD, PAD, h/o tobacco COVID negative @ [facility] -- Follow surgery, IR, and ID recommendations. From a GI standpoint, we recommend outpt colonoscopy in a couple months for further evaluation. She will consider this but would like to talk with her PCP and possibly pursue colonoscopy with them like before. Some increased risk for endoscopy/surgery w/ pulmonary and other chronic medical problems. Consider addition of Ensure, etc. Monitor loose stools, consider checking C Diff since has been on antibiotics. Long-term, may need to consider constipation treatment. LUCAS KIMBROUGH Jul 23, 2021 11:59
--- NOTE | 2021-07-23 12:40 | PDOC ---
SURGICAL PROGRESS NOTE DATE: 07/23/21 TIME: 12:36 Subjective no complaints having diarrhea Vital Signs Vital Signs Date Time Temp Pulse Resp B/P (MAP) Pulse Ox O2 Delivery O2 Flow Rate FiO2 07/23/21 10:58 98.0 77 18 159/53 (88) 100 Nasal Cannula 2.0 98.0 I&O Intake and Output 07/23/21 07:00 Intake Total 860 ml Output Total 1290 ml Balance -430 ml Intake Oral 860 ml Output Urine Total 1290 ml # Voids 2 # Bowel Movements 9 General: Alert, Oriented X3, Cooperative Abdomen: Soft, No tenderness Labs Laboratory Tests Test 07/23/21 04:50 White Blood Count 10.5 x10^3/uL (4.0-11.0) Red Blood Count 3.77 x10^6/uL (3.50-5.40) Hemoglobin 12.6 g/dL (12.0-15.5) Hematocrit 36.2 % (36.0-47.0) Mean Corpuscular Volume 96 fL (79-100) Mean Corpuscular Hemoglobin 33 pg (25-35) Mean Corpuscular Hemoglobin Concent 35 g/dL (31-37) Red Cell Distribution Width 13.5 % (11.5-14.5) Platelet Count 331 x10^3/uL (140-400) Sodium Level 137 mmol/L (136-145) Potassium Level 4.2 mmol/L (3.5-5.1) Chloride Level 97 mmol/L (98-107) Carbon Dioxide Level 31 mmol/L (21-32) Anion Gap 9 (6-14) Blood Urea Nitrogen 6 mg/dL (7-20) Creatinine 0.8 mg/dL (0.6-1.0) Estimated GFR (Cockcroft-Gault) 69.2 BUN/Creatinine Ratio 8 (6-20) Glucose Level 91 mg/dL (70-99) Calcium Level 8.9 mg/dL (8.5-10.1) Iron Level 37 ug/dL (50-170) Total Iron Binding Capacity 215 ug/dL (250-450) Iron Saturation 17 % (15-34) Total Bilirubin 0.3 mg/dL (0.2-1.0) Aspartate Amino Transf (AST/SGOT) 18 U/L (15-37) Alanine Aminotransferase (ALT/SGPT) 23 U/L (14-59) Alkaline Phosphatase 72 U/L (46-116) Total Protein 6.2 g/dL (6.4-8.2) Albumin 2.5 g/dL (3.4-5.0) Albumin/Globulin Ratio 0.7 (1.0-1.7) Laboratory Tests Test 07/23/21 04:50 White Blood Count 10.5 x10^3/uL (4.0-11.0) Red Blood Count 3.77 x10^6/uL (3.50-5.40) Hemoglobin 12.6 g/dL (12.0-15.5) Hematocrit 36.2 % (36.0-47.0) Mean Corpuscular Volume 96 fL (79-100) Mean Corpuscular Hemoglobin 33 pg (25-35) Mean Corpuscular Hemoglobin Concent 35 g/dL (31-37) Red Cell Distribution Width 13.5 % (11.5-14.5) Platelet Count 331 x10^3/uL (140-400) Sodium Level 137 mmol/L (136-145) Potassium Level 4.2 mmol/L (3.5-5.1) Chloride Level 97 mmol/L (98-107) Carbon Dioxide Level 31 mmol/L (21-32) Anion Gap 9 (6-14) Blood Urea Nitrogen 6 mg/dL (7-20) Creatinine 0.8 mg/dL (0.6-1.0) Estimated GFR (Cockcroft-Gault) 69.2 BUN/Creatinine Ratio 8 (6-20) Glucose Level 91 mg/dL (70-99) Calcium Level 8.9 mg/dL (8.5-10.1) Iron Level 37 ug/dL (50-170) Total Iron Binding Capacity 215 ug/dL (250-450) Iron Saturation 17 % (15-34) Total Bilirubin 0.3 mg/dL (0.2-1.0) Aspartate Amino Transf (AST/SGOT) 18 U/L (15-37) Alanine Aminotransferase (ALT/SGPT) 23 U/L (14-59) Alkaline Phosphatase 72 U/L (46-116) Total Protein 6.2 g/dL (6.4-8.2) Albumin 2.5 g/dL (3.4-5.0) Albumin/Globulin Ratio 0.7 (1.0-1.7) Assessment/Plan IR consult pending continue abx Justicifation of Admission Dx: Justifications for Admission: Justification of Admission Dx: Yes KELSEY PEREYRA CURING FINISHER Jul 23, 2021 12:40
--- NOTE | 2021-07-23 15:51 | NUR ---
Procedure: Following complete explanation of the PICC procedure including the indications, risks, and potential complications, informed consent was obtained. The possibility for infection was discussed along with signs, symptoms, and prevention. All the questions were answered.yes Written and verbal patient education was provided. yes Hand hygiene performed.yes Standardized central line checklist was utilized. yes The patient was placed in the supine position, the arm was prepped with chlorhexidine and patient draped with maximum sterile barrier. mL 1% lidocaine was infiltrated into the skin to provide local anesthesia. A thorough assessment of Right upper extremity completed. Using real-time ultrasound guidance and standardized micro puncture set, the Basilic vein was punctured and a peel away sheath was placed using the modified Seldinger technique. A tip location device was used to ensure adequate catheter placement. The catheter was secured using a securement device and an antimicrobial patch was applied directly on the insertion site followed by a transparent dressing. All ports withdraw blood and flush without resistance. Patient tolerated the procedure without apparent complication(s). Single Lumen Power PICC placement successful and uncomplicated. Placement verified by EKG tip confirmation system and/or chest x-ray. Tip located in the CAJ Complications:none
--- NOTE | 2021-07-23 15:54 | NUR ---
Allergies and reactions NKDA INR 1.0 BUN 6 Cr 0.8 Platelets 331 Blood culture not done blood culture results na Order Verified yes Consent signed yes Previous PICC placement no Past Medical/Surgical history and current diagnosis reviewed yes Patient Medical /Surgical History Related to PICC line placement Infectious Disease consult Special considerations for PICC line placement Infections PICC placement indication ferry terminal agent antibiotic usage, Nova Foster RN PICC Nurse
--- NOTE | 2021-07-23 16:05 | NUR ---
SS following up with discharge planning. SS reviewed pt chart and discussed with pt RN. Pt is currently requiring oxygen at three liters nasal canula. Pt has home oxygen. Full Liquid diet. Pt on IV Zosyn. No surgical plans. GI and ID consulted today. PICC placed today. Discharge plan is currently to home when medically ready for discharge. Currently awaiting recommendations from ID at this time. SS will continue to follow for discharge planning.
[2021-07-23 18:55] VITALS: BP 173/60
--- NOTE | 2021-07-23 19:02 | CONS ---
DATE OF CONSULTATION: 07/23/2021 REQUESTING PHYSICIAN: Mariposa Saleh MD REASON FOR CONSULTATION: Perforated diverticulitis. HISTORY OF PRESENT ILLNESS: This is a 81-year-old female who came in with abdominal pain. The patient was at [facility] and patient's CAT scan showed microperforation. White count was 14,000. The patient was transferred here, given antibiotics, Surgery consulted and conservative management was planned until another CAT scan was done yesterday, which showed there is a 5.4 x 1.7 x 4.3 cm abscess. Almost pain has gone from the abdomen, she says. She denies any nausea, vomiting, diarrhea. Denies any fever or chills. No other complaints. She says she is ready to go home. The patient is on Zosyn. PAST MEDICAL HISTORY: Positive for hypertension, hyperlipidemia, COPD, bilateral carotid stenosis, renal stenosis, mesenteric stenosis. She has had cataract extraction. SOCIAL HISTORY: Negative for smoking, she quit 13 years ago. No alcohol use or drug use. ALLERGIES: No known drug allergies. CURRENT MEDICATIONS: Reviewed. REVIEW OF SYSTEMS: As in HPI. All other systems reviewed are negative. PHYSICAL EXAMINATION: GENERAL: Alert, oriented female, not in distress. VITAL SIGNS: Stable, afebrile. HEENT: Both pupils are round and reacting. No conjunctival lesion, no lesion in the mouth. NECK: Supple, no JVP, no lymphadenopathy. LUNGS: Clear. HEART: S1, S2, regular. ABDOMEN: Soft, nontender, no organomegaly. EXTREMITIES: No edema, cyanosis. SKIN: Unremarkable. She does have carotid ____ as well as abdominal ____ present. NEUROLOGIC: The patient is alert, awake, and appropriate. No focal neurologic deficit. LABORATORY DATA: White count is down to normal now. BUN and creatinine is normal. Liver functions are normal. CT as I mentioned earlier. Blood culture is negative. IMPRESSION: 1. Diverticulitis with diverticular perforation. 2. Abdominal abscess from perforation. 3. Leukocytosis, which has improved. 4. Hypertension. 5. Hyperlipidemia. 6. Vascular stenosis in multiple places. RECOMMENDATIONS: Continue Zosyn. We will ask IR to drain the abscess. Supportive care and we will continue to follow. The patient is likely is going to need to go on IV antibiotics at home. Thank you very much, Dr. Saleh, for giving me opportunity to participate in this patient's care. DUKE/LEANA/MO DR: Leana TID: [id number]
[2021-07-23] MEDS ORDERED: ATORVASTATIN CALCIUM 40 MG TABLET. PO SCH (21:00)
[2021-07-23 22:50] VITALS: BP 160/82
[2021-07-24] MEDS: PIPERACILLIN/TAZOBACTAM 3.375 GM in IV NORMAL SALINE 50ML 50 ML IV SCH ×3 (00:51→12:33)
[2021-07-24 02:43] VITALS: BP 141/51
[2021-07-24] MEDS: fentaNYL PF VIAL 100 MCG/2 ML VIAL IVP PRN ×3 (04:40→16:29)
[2021-07-24 07:30] VITALS: BP 108/47
[2021-07-24] MEDS: METOPROLOL SUCC 24HR ER 50 MG TAB.ER.24H. PO SCH (08:28)
[2021-07-24] MEDS: MULTIVITAMIN with MINERAL TABLET. PO SCH (08:28)
[2021-07-24] MEDS: ASPIRIN CHEWABLE 81 MG TABLET. PO SCH (08:28)
[2021-07-24] MEDS: LISINOPRIL 10 MG TABLET PO SCH (08:29)
[2021-07-24] MEDS: CALCIUM CARBONATE 500 MG TABLET PO SCH (08:29)
[2021-07-24] MEDS: AMIODARONE HCL 200 MG TABLET. PO SCH (08:29)
[2021-07-24] MEDS: LACTOBACILLUS RHAMNOSUS GG 1 CAPSULE. PO SCH (08:30)
[2021-07-24] MEDS: POTASSIUM CHLORIDE 20 MEQ TABLET.ER. PO SCH (08:30)
--- NOTE | 2021-07-24 09:17 | PDOC ---
Infectious Disease Note Subjective Subjective pt is feeling ok, off and on some abd pain, ROS ROS no n/v/d/sob/fever Vital Sign Vital Signs Vital Signs Date Time Temp Pulse Resp B/P (MAP) Pulse Ox O2 Delivery O2 Flow Rate FiO2 07/24/21 08:29 99 108/47 07/24/21 05:10 100 Nasal Cannula 2.0 07/24/21 02:43 98.6 18 98.6 Physical Exam PHYSICAL EXAM GENERAL: Alert, oriented female, not in distress. VITAL SIGNS: Stable, afebrile. HEENT: Both pupils are round and reacting. No conjunctival lesion, no lesion in the mouth. NECK: Supple, no JVP, no lymphadenopathy. LUNGS: Clear. HEART: S1, S2, regular. ABDOMEN: Soft, nontender, no organomegaly. EXTREMITIES: No edema, cyanosis. SKIN: Unremarkable. NEUROLOGIC: The patient is alert, awake, and appropriate. No focal neurologic deficit. Labs Micro Microbiology 07/16/21 Blood Culture - Final, Complete NO GROWTH AFTER 5 DAYS Objective Assessment IMPRESSION: 1. Diverticulitis with diverticular perforation. 2. Abdominal abscess from perforation. unable to drain per IR 3. Leukocytosis, which has improved. 4. Hypertension. 5. Hyperlipidemia. 6. Vascular stenosis in multiple places. Plan Plan of Care iv Invanz for d/c f/u with me in 2 wks f/u ct in 2 wks d/w SS for out pt antibiotics ISAIAS LUBIN MD Jul 24, 2021 09:17
--- NOTE | 2021-07-24 09:32 | PDOC ---
CARDIO Progress Notes Date and Time Date of Service 07/24/21 Time of Evaluation 1145 Subjective Subjective: No Chest Pain, No shortness of breath, No Palpitations Vitals Vitals Vital Signs Date Time Temp Pulse Resp B/P (MAP) Pulse Ox O2 Delivery O2 Flow Rate FiO2 07/24/21 08:29 99 108/47 07/24/21 07:30 98.3 18 97 Nasal Cannula 2.0 98.3 Weight Weight [ ] Input and Output Intake and Output Intake and Output 07/24/21 07:00 Intake Total 830 ml Output Total 550 ml Balance 280 ml Intake Oral 830 ml Output Urine Total 550 ml # Bowel Movements 1 Microbiology Micro Microbiology 07/16/21 Blood Culture - Final, Complete NO GROWTH AFTER 5 DAYS Physical Exam HEENT: Neck Supple W Full Motion Chest: Symmetric LUNGS: Other (diminished ) Heart: RRR (SR) Abdomen: Soft N/T Extremities: No Calf Tenderness Neurology: alert, oriented, follow commands Assessment Assessment 1. Abdominal pain; CT abdomen pelvis notable for diverticulitis with microperforation. now with abdominal abscess. GS following 2. PSVT; new finding in setting of above. Maintaining SR 3. Hypertension; controlled 4. Hyperlipidemia 5. Chronic respiratory failure with underlying COPD; O2 dependent 6. Chronic constipation with h/o bowel obstruction 7. Leukocytosis, lactic acidosis 8. CAD; coronary calcifications noted on CT 9. PAD; extensive diffuse plaquing noted with narrowing of the abdominal aorta up to approximately 50%. Severe stenosis at the celiac, right renal artery and ERIKA origins, and long segment severe stenoses of both common iliac arteries. Recommendations Metoprolol for rate control Amiodarone for rhythm maintenance Outpatient event monitor as arranged Outpt ischemic w/u and PAD w/u as well. Stress test, echo, and follow up in our office with Dr. Johns has been scheduled Secondary prevention Justicifation of Admission Dx: Justifications for Admission: Justification of Admission Dx: Yes CELESTINE JOE APRN Jul 24, 2021 09:32
--- NOTE | 2021-07-24 09:40 | NUR ---
SS following up with discharge planning. SS reviewed pt chart and discussed with pt RN. Pt is currently requiring oxygen at two liters nasal canula. Pt has home oxygen. Full liquid diet. Pt on IV Zosyn. No surgical plans at this time. Script received for IV Invanz. Script and clinical phoned and faxed to [facility], ; fax [phone], and [employer], ; fax [phone], to check benefits for in home infusions. PICC in place. Discharge plan is currently to home. SS will continue to follow for discharge planning. Addendum: 07/24/21 at 1226 by JENIFER KIRK SS SS was informed that by [facility] that pt has large out of pocket cost for in home infusions. SS contacted [facility] for outpatient infusion set up and was notified that they are not taking any pt's for outpatient infusions at this time. SS was notified that there are no other infusion clinics in [place] and pt will need to go to [place] or [place] for IV antibiotics. Pt requesting [facility] at this time. Script and referral sent to [facility] Outpatient, [id number]; [phone]. SS spoke with Zakiya. Currently awaiting insurance verification and first appointment time. Discharge orders on the chart. Addendum: 07/24/21 at 1447 by JENIFER GRIER Per Case Management, benefits verified for outpatient infusions. SS contacted [facility] Outpatient and appointment time of 1330 on 07/25/2021 was provided. Pt's RN notified.
--- NOTE | 2021-07-24 09:50 | PDOC ---
Date of Service: DATE: 07/24/21 TIME: 09:43 Subjective: Subjective: More pain overnight - left, lower abdomen. She tells me no plans for drain "because it's too deep." Loose stools slowing. Says she ate regular food last night but back to cream of wheat this morning. Objective: Objective: Reviewed chart - recs for ID follow-up and interval CT in 2 weeks. IR consult canceled in chart - "not a candidate for drainage." Not iron deficient. Vital Signs: Vital Signs Date Time Temp Pulse Resp B/P (MAP) Pulse Ox O2 Delivery O2 Flow Rate FiO2 07/24/21 08:29 99 108/47 07/24/21 07:30 98.3 18 97 Nasal Cannula 2.0 98.3 PE: GEN: NAD LUNGS: diminished, wet cough, NC 2L HEART: RRR ABD: quiet BS, soft, LLQ tenderness toward suprapubic region - holding ice pack NEURO/PSYCH: A & O 3 A/P: Suspected diverticulitis w/ microperf/multiloculated collection - more pain today Loose stools - better COPD, PAD -- Increased pain overnight/this morning. Drain not recommended per IR. Atbx and follow-up plans per ID as above. Agree w/ current plan. GI-de la o needs colonoscopy in 2-3 months - discussed in detail yesterday w/ pt and Dr. Leonard - our office will be in touch. Justicifation of Admission Dx: Justifications for Admission: Justification of Admission Dx: Yes LUCAS KIMBROUGH Jul 24, 2021 09:50
[2021-07-24] MEDS ORDERED: ATOR40TA59 PO (10:49)
[2021-07-24] MEDS ORDERED: AMIO100T4 PO (10:49)
[2021-07-24] MEDS ORDERED: ERTA1VIA16 IJ (10:49)
--- NOTE | 2021-07-24 10:51 | SNU/HH DC ---
DISCHARGE WITH HOME HEALTH DISCHARGE INFORMATION: Discharge Date: Jul 24, 2021 Final Diagnosis: acute diverticulitis PSVT Condition on Discharge: Stable HOME HEALTH: Face to Face: I certify this patient is under my care and that I, or a nurse practitioner or physician's respiratory assistant working with me, had a face to face encounter that meets the physician face to face encounter requirements with this patient on 07/24/2021 Medical Complications: Other RN For Eval/Treatment: Yes Physical Therapy For: Evalulation/Treatment Occupational Therapy For: Evaluation/Treatment Pt Meets Homebound Status: Extreme weakness w/ amb. POST DISCHARGE ORDERS: Activity Instructions for Disc: Activity as tolerated DIET AFTER DISCHARGE: Regular CERTIFICATION STATEMENT: Certification Statement: Certification Statement: Based on the above finding, I certify that this patient is confined to the home and needs intermittent mcfp care, physical therapy and/or speech therapy, or continues to need occupational therapy.~ This patient is under my care, and I have initiated the establishment of the plan of care.~ This patient will be followed by myself or a community physician who will periodically review the plan of care. Home Meds Active Scripts Ertapenem Sodium (INVANZ) 1 Gm Vial, 1 GM IJ DAILY for diverticulitis for 28 Days, #28 EACH Prov:WILTON BEGUM MD 07/24/21 Atorvastatin Calcium (ATORVASTATIN CALCIUM) 40 Mg Tablet, 1 TAB PO DAILY for hld for 30 Days, #30 TAB 5 Refills Prov:WILTON BEGUM MD 07/24/21 Amiodarone Hcl (AMIODARONE HCL) 100 Mg Tablet, 1 TAB PO DAILY for svt for 30 Days, #30 TAB 5 Refills Prov:WILTON BEGUM MD 07/24/21 Reported Medications Simvastatin (SIMVASTATIN) 40 Mg Tablet, 40 MG PO HS for FOR CHOLESTEROL, #30 TAB 0 Refills 07/16/21 Calcium Carbonate (CALCIUM) 500 Mg Tab.chew, 600 MG PO DAILY for supplement, TAB.CHEW 07/16/21 Multivitamin (One-Daily Multi-Vitamin) 1 Each Tablet, 1 TAB PO DAILY for supplement for 30 Days, #30 TAB 0 Refills 07/16/21 Aspirin (ASPIRIN) 81 Mg Tab.chew, 81 MG PO DAILY for DVT prophylactic, TAB.CHEW 07/16/21 Metoprolol Succinate (METOPROLOL SUCCINATE ( XL )) 25 Mg Tab.er.24h, 50 MG PO DAILY for FOR HYPERTENSION, #30 TAB 0 Refills 07/16/21 Lorazepam (ATIVAN) 1 Mg Tablet, 1 MG PO HS for sleep, TAB 07/16/21 Lisinopril (LISINOPRIL) 10 Mg Tablet, 10 MG PO DAILY for FOR HYPERTENSION, #30 TAB 0 Refills 07/16/21 Discontinued Reported Medications Diltiazem Hcl (CARDIZEM CD) 180 Mg Cap.er.24h, 1 CAP PO BID for jcardiac, #90 CAP 1 Refill 07/18/21 Methylprednisolone (METHYLPREDNISOLONE) 4 Mg Tablet, 1 PKG PO UD for bronchitis, #1 PKG 07/16/21 WILTON BEGUM MD Jul 24, 2021 10:51
[2021-07-24] MEDS ORDERED: LORA-434 PO (10:55)
[2021-07-24] MEDS ORDERED: OXYC5TAB4 PO (10:55)
[2021-07-24 10:58] VITALS: BP 146/64
[2021-07-24 15:04] VITALS: BP 116/61
--- NOTE | 2021-07-24 18:06 | NUR ---
pt is discharged home with self care via wheelchair via [employer] [facility]. pt is in stable condition. pt has all belongings with her. pt received discharge instructions and was told her prescriptions were sent to her pharmacy and she stated she had no further questions for me. pt home medications that were in pharmacy were sent home with pt.
== END 2021-07-24 17:20 | disposition home or self-care (01) | DRG 391 ==
LOC: 4 NORTH 23:55 → 6 SOUTH 07-18 11:16
PROVIDERS: ADMIT Internal Medicine; ATTEND Internal Medicine
PROC: 02HV33Z Insertion of Infusion Device into Superior Vena Cava, Percutaneous Approach (ICD-10-PCS; principal; 2021-07-23)
PROC: B548ZZA Ultrasonography of Superior Vena Cava, Guidance (ICD-10-PCS; 2021-07-23)
DX: K57.20 Diverticulitis of large intestine with perforation and abscess without bleeding (principal); E43 Unspecified severe protein-calorie malnutrition; K56.609 Unspecified intestinal obstruction, unspecified as to partial versus complete obstruction; I47.1 Supraventricular tachycardia; E87.2 Acidosis; H33.20 Serous retinal detachment, unspecified eye; J96.11 Chronic respiratory failure with hypoxia; R64 Cachexia; R65.10 Systemic inflammatory response syndrome (SIRS) of non-infectious origin without acute organ dysfunction; E78.5 Hyperlipidemia, unspecified; E86.0 Dehydration; E87.6 Hypokalemia; I10 Essential (primary) hypertension; I48.91 Unspecified atrial fibrillation; I25.10 Atherosclerotic heart disease of native coronary artery without angina pectoris; I65.23 Occlusion and stenosis of bilateral carotid arteries; I70.1 Atherosclerosis of renal artery; I70.8 Atherosclerosis of other arteries; I73.9 Peripheral vascular disease, unspecified; I77.1 Stricture of artery; J43.9 Emphysema, unspecified; Z82.49 Family history of ischemic heart disease and other diseases of the circulatory system; Z87.891 Personal history of nicotine dependence; Z98.41 Cataract extraction status, right eye; Z98.42 Cataract extraction status, left eye; Z99.81 Dependence on supplemental oxygen; M19.90 Unspecified osteoarthritis, unspecified site
CPT/HCPCS: 36415; 36569; 74177; 80048; 80053; 80061; 83540; 83550; 83605; 83735; 84443; 85025; 85027; 85610; 85730; 87040; 93005; J0282; J0360; J1160; J2060; J2543; J3010; J3480; J3490; J7030; J7060; Q9966; Q9967; G0378

== ENCOUNTER → 2021-08-15 | Outpatient (CLI) | payer MEDICARE ==
[2021-08-14 06:32] VITALS: BP 150/66
[~2021-08-15] MED LIST: AMIO100T4 PO; ASPI-630 PO; ATOR40TA59 PO; CALC500T54 PO; DILT180C2 PO; ERTA1VIA16 IJ; IOHEXOL 240 MG/ML 50ML VIAL. PO ONE; IOHEXOL 300 MG/ML 100ML VIAL. IV ONE; LISI10TA16 PO; LORA-434 PO; METH4TAB7 PO; METO-239 PO; MULT-735 PO; OXYC5TAB4 PO; SIMV40TA18 PO
--- NOTE | 2021-08-15 11:38 | RAD ---
EXAMINATION: CT abdomen and pelvis with IV contrast. INDICATION:81 years, Female, follow-up diverticulitis with perforation. TECHNIQUE: Axial CT images of the abdomen and pelvis were obtained. Coronal and sagittal reformatted performed. COMPARISON: 07/22/2021. Exposure: One or more of the following individualized dose reduction techniques were utilized for thi s examination: 1. Automated exposure control 2. Adjustment of the mA and/or kV according to patient size 3. Use of iterative reconstruction technique. FINDINGS: LOWER CHEST: Moderate pulmonary emphysema. ABDOMEN/PELVIS: Redemonstrated colonic diverticulosis. Focal sigmoidal wall without adjacent fat stranding. Interval resolution of the left pelvic abscess. No small bowel dilation. Appendix is not seen with certainty. No pneumoperitoneum or ascites. Liver, spleen, gallbladder, and biliary ducts are unremarkable. Pancreatic divisum. Thickened bilater ally adrenal glands, findings can be seen in adrenal hyperplasia. Atrophic right kidney. Left kidney is unremarkable. Extensive aortoiliac atherosclerotic calcifications with likely occluded bilateral c ommon iliac, proximal external and internal iliac arteries. 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 Portal veins are patent. No lymphadenopathy. Unremarkable urinary bladder and uterus. No suspicious pelvic masses. MUSCULOSKELETAL STRUCTURES: No acute osseous process. IMPRESSION: 1. Interval resolution of the left pelvic abscess and extraluminal gas. 2. Focal sigmoid wall thickening without adjacent fat stranding to suggest acute process. Findings l ikely secondary to chronic diverticular disease. However, underlying malignancy cannot be excluded. C onsider correlation with colonoscopy. 3. Other chronic/incidental findings, as described above. Electronically signed by: Ramsey Baird MD (08/15/2021 11:35 AM) [facility]
== END ==
LOC: CT 09:29
PROVIDERS: ATTEND Internal Medicine Infectious Disease
DX: K57.30 Diverticulosis of large intestine without perforation or abscess without bleeding (principal); K63.89 Other specified diseases of intestine; N26.1 Atrophy of kidney (terminal); I70.8 Atherosclerosis of other arteries; K57.20 Diverticulitis of large intestine with perforation and abscess without bleeding
CPT/HCPCS: 74177; Q9966; Q9967